=== PATIENT | male | born 1960 | race Caucasian/White ===

== ENCOUNTER 2018-05-22 11:09 | Emergency (ER) | payer OTHER, MEDICAID, SELFPAY ==
[2018-05-22] VITALS (8 sets, daily range): BP systolic 120–160; BP diastolic 68–89; PULSE 81–122; RESP 13–22; O2SAT 98–100; BMI 23.0
[2018-05-22] MEDS: SODIUM CHLORIDE 0.9% 1,000 ML 150 ML IV ×4 (12:38→18:49)
[2018-05-22] MEDS: ONDANSETRON 4 MG/2 ML INJ IV ×3 (12:39→18:36)
[2018-05-22] MEDS: MORPHINE 4 MG/ML INJ IV ×3 (12:39→19:11)
--- NOTE | 2018-05-22 12:40 | ED.ABDPAIN ---
HPI - Abdominal Pain <RUDDY De La Torre-BC - Last Filed: 05/22/18 19:00> General Chief Complaint: Abdominal Pain Stated Complaint: MASSIVE STOMACH PAINS LEFT SIDE Time Seen by Provider: 05/22/18 12:20 Source: patient and family Mode of arrival: ambulatory Limitations: no limitations History of Present Illness HPI narrative: Patient is a 57-year-old male who presents with chief complaint of abdominal pain since . He states it got worse after Thanksgiving dinner but he thought it was attributed to his meal. He currently presents with 10/10 left upper quadrant abdominal pain described as shooting and ringing. He denies any fever, complains of nausea and vomiting. He states his last bowel movement was several days ago but has not been eating or drinking. He is concerned he is dehydrated. He denies any abdominal history or surgeries. He states he is passing a slight gas. He denies any dysuria urgency or frequency. Denies any chest pain or shortness of breath. Related Data Home Medications Medication Instructions Recorded Confirmed No Known Home Medications 05/22/18 05/22/18 Allergies Allergy/AdvReac Type Severity Reaction Status Date / Time No Known Drug Allergies Allergy Verified 05/22/18 11:18 Review of Systems <RUDDY De La Torre-BC - Last Filed: 05/22/18 19:00> Constitutional Reports as per HPI, Denies chills, Denies fever(s), Denies lethargy and Denies weakness ENT Ears, Nose, Mouth, and Throat: Denies throat swelling Cardiovascular Denies chest pain, Denies chest pain at rest, Denies chest pain with activity, Denies diaphoresis, Denies syncope, Denies rapid heart rate and Denies irregular heart rhythm Respiratory Denies chest congestion, Denies cough, Denies hemoptysis, Denies excessive phlegm production and Denies wheezing Gastrointestinal Gastrointestinal: Reports as per HPI Genitourinary Denies urinary frequency, Denies urinary hesitancy and Denies urinary incontinence Musculoskeletal Denies back pain, Denies muscle weakness, Denies numbness and Denies tingling Integumentary/Breasts Denies pruritus, Denies erythema, Denies rash and Denies wounds Neurologic Denies confusion, Denies syncope, Denies numbness, Denies tingling and Denies weakness Psychiatric Denies anxiety, Denies confusion, Denies depression, Denies homicidal ideation and Denies suicidal ideation Allergic/Immunologic Denies urticaria, Denies throat swelling and Denies wheezing Exam <JUAN De La Torre - Last Filed: 05/22/18 19:00> Initial Vital Signs Initial Vital Signs: Vital Signs Pulse Rate 122 H 05/22/18 11:18 Respiratory Rate 22 05/22/18 11:18 Blood Pressure 134/89 05/22/18 11:18 Pulse Oximetry 98 05/22/18 11:18 Const General: cooperative, well developed, No well groomed and in distress Nutritional Appearance: thin Orientation: alert, awake and oriented x3 HENMT Head: normal to inspection Nose: external nose normal Face and sinus: normal facial exam Eyes General: appearance normal, both eyes and all related structures Neck Neck: normal visual inspection Chest Chest: normal inspection of the chest Resp Effort & Inspection: normal respiratory effort, able to speak in complete sentences, no audible wheezes, no cough, no grunting, not labored and no nasal flaring Auscultation: clear to auscultation bilaterally, no crackles, lung sounds not diminished, no rales, no rhonchi and no wheezes Cardio Rate: tachycardic Rhythm: regular rhythm Heart Sounds: S1 normal and S2 normal GI Inspection: normal to inspection Palpation: firm, guarding and No pulsatile mass Auscultation: normal bowel sounds Back/Spine/Pelvis Back: No CVA tenderness Cervical Spine: cervical ROM normal and No pain with cervical ROM Thoracic/Lumbar Spine: thoracic and lumbar spine normal to inspection Skin General: no rashes or lesions noted Neuro General: alert, awake and oriented x3 <Sharla Avalos DO - Last Filed: 05/23/18 07:55> Initial Vital Signs Initial Vital Signs: Vital Signs Pulse Rate 122 H 05/22/18 11:18 Respiratory Rate 22 05/22/18 11:18 Blood Pressure 134/89 05/22/18 11:18 Pulse Oximetry 98 05/22/18 11:18 Course <JUAN De La Torre - Last Filed: 05/22/18 19:00> Decision to Admit Date: 05/22/18 Decision to Admit time: 13:20 Orders Ordered: Discontinued Medications Sodium Chloride (Normal Saline 0.9%) 1,000 mls @ 150 mls/hr IV CONT COMFORT Last Admin: 05/22/18 18:46 Dose: 150 mls/hr Infusion: 05/22/18 18:46 Dose: 150 mls/hr Admin: 05/22/18 18:36 Dose: 150 mls/hr Infusion: 05/22/18 18:36 Dose: 150 mls/hr Admin: 05/22/18 12:38 Dose: 150 mls/hr Sodium Chloride (Normal Saline 0.9%) 1,000 mls @ 1,000 mls/hr IV BOLUS ONE Stop: 05/22/18 13:26 Last Admin: 05/22/18 13:08 Dose: Not Given Sodium Chloride (Normal Saline 0.9%) 1,000 mls @ 1,000 mls/hr IV BOLUS ONE Stop: 05/22/18 15:20 Last Admin: 05/22/18 14:32 Dose: 1,000 mls/hr Sodium Chloride (Normal Saline 0.9%) 1,000 mls @ 150 mls/hr IV CONT COFMORT Last Infusion: 05/22/18 19:13 Dose: 150 mls/hr Admin: 05/22/18 18:49 Dose: 150 mls/hr Morphine Sulfate (Morphine) 4 mg IV NOW ONE Stop: 05/22/18 12:28 Last Admin: 05/22/18 12:39 Dose: 4 mg Morphine Sulfate (Morphine) 4 mg IV NOW ONE Stop: 05/22/18 14:22 Last Admin: 05/22/18 14:32 Dose: 4 mg Morphine Sulfate (Morphine) 4 mg IV NOW ONE Stop: 05/22/18 19:12 Last Admin: 05/22/18 19:11 Dose: 4 mg Ondansetron HCl (Zofran) 4 mg IV NOW ONE Stop: 05/22/18 12:28 Last Admin: 05/22/18 12:39 Dose: 4 mg Ondansetron HCl (Zofran) 4 mg IV NOW ONE Stop: 05/22/18 14:22 Last Admin: 05/22/18 14:32 Dose: 4 mg Ondansetron HCl (Zofran) 4 mg IV NOW ONE Stop: 05/22/18 18:35 Last Admin: 05/22/18 18:36 Dose: 4 mg Reevaluation(s) Reevaluation #1: Spoke with patient about elevated lipase as well as CT scan that was ordered. Patient does not want any more pain or nausea medication at this point time. Patient's expresses appreciation. Is reclined on stretcher. Time: 13:15 Reevaluation #2: Spoke with patient regarding CT scan results. Discussed giving additional fluid. Patient is requesting more pain and nausea medications which I have ordered at this time. States understanding and has no questions. He is still hemodynamically stable. Time: 14:20 Consultations Consultation #1: Spoke with [facility] hospitalist Dr. Mejias who stated he would not like to admit this patient to this facility due to lack of GI back up. Time: 14:35 Consultation #2: Spoke with radiologist who states that cyst is less likely than not to be infectious Time: 16:00 Consultation #3: Spoke with [facility] Hospitalist Romy who states minal [facility] would not like to admit this patient given his slightly elevated white blood cell count combined with a pseudocyst. t Time: 16:20 Additional Consultation(s): 17:00: I spoke with Dr. Carrillo from [facility] who kindly agreed to admit the patient. Discussed transfer with patient has no questions or concerns this time. Patient has a continuous NS infusion running. Discussed treating his pain and nausea while he waits for ACLS transport to [facility] for fluids, pain and nausea control. Discussed that the reason of his transfer was the lack of comfort by our hospitalist as well as having GI at [facility]. I checked on the patient. He had no questions or concerns prior to his transfer at 5:00 p.m.. Vital Signs - 8 hr 05/22/18 11:18 05/22/18 12:31 05/22/18 13:30 Pulse Rate 122 H 110 H 87 Respiratory Rate 22 20 14 Blood Pressure 134/89 Blood Pressure [Left Arm] 160/88 H 148/86 H Pulse Oximetry 98 100 98 05/22/18 14:30 05/22/18 16:00 05/22/18 17:30 Pulse Rate 87 85 81 Respiratory Rate 13 Blood Pressure Blood Pressure [Left Arm] 147/84 H 120/68 136/78 Pulse Oximetry 100 99 99 05/22/18 18:45 Pulse Rate 87 Respiratory Rate 16 Blood Pressure Blood Pressure [Left Arm] 137/69 Pulse Oximetry 99 <Sharla Avalos, DO - Last Filed: 05/23/18 07:55> Orders Ordered: Discontinued Medications Sodium Chloride (Normal Saline 0.9%) 1,000 mls @ 150 mls/hr IV CONT [facility] Last Admin: 05/22/18 18:46 Dose: 150 mls/hr Infusion: 05/22/18 18:46 Dose: 150 mls/hr Admin: 05/22/18 18:36 Dose: 150 mls/hr Infusion: 05/22/18 18:36 Dose: 150 mls/hr Admin: 05/22/18 12:38 Dose: 150 mls/hr Sodium Chloride (Normal Saline 0.9%) 1,000 mls @ 1,000 mls/hr IV BOLUS ONE Stop: 05/22/18 13:26 Last Admin: 05/22/18 13:08 Dose: Not Given Sodium Chloride (Normal Saline 0.9%) 1,000 mls @ 1,000 mls/hr IV BOLUS ONE Stop: 05/22/18 15:20 Last Admin: 05/22/18 14:32 Dose: 1,000 mls/hr Sodium Chloride (Normal Saline 0.9%) 1,000 mls @ 150 mls/hr IV CONT [facility] Last Infusion: 05/22/18 19:13 Dose: 150 mls/hr Admin: 05/22/18 18:49 Dose: 150 mls/hr Morphine Sulfate (Morphine) 4 mg IV NOW ONE Stop: 05/22/18 12:28 Last Admin: 05/22/18 12:39 Dose: 4 mg Morphine Sulfate (Morphine) 4 mg IV NOW ONE Stop: 05/22/18 14:22 Last Admin: 05/22/18 14:32 Dose: 4 mg Morphine Sulfate (Morphine) 4 mg IV NOW ONE Stop: 05/22/18 19:12 Last Admin: 05/22/18 19:11 Dose: 4 mg Ondansetron HCl (Zofran) 4 mg IV NOW ONE Stop: 05/22/18 12:28 Last Admin: 05/22/18 12:39 Dose: 4 mg Ondansetron HCl (Zofran) 4 mg IV NOW ONE Stop: 05/22/18 14:22 Last Admin: 05/22/18 14:32 Dose: 4 mg Ondansetron HCl (Zofran) 4 mg IV NOW ONE Stop: 05/22/18 18:35 Last Admin: 05/22/18 18:36 Dose: 4 mg Vital Signs - 8 hr 05/22/18 11:18 05/22/18 12:31 05/22/18 13:30 Pulse Rate 122 H 110 H 87 Respiratory Rate 22 20 14 Blood Pressure 134/89 Blood Pressure [Left Arm] 160/88 H 148/86 H Pulse Oximetry 98 100 98 05/22/18 14:30 05/22/18 16:00 05/22/18 17:30 Pulse Rate 87 85 81 Respiratory Rate 13 Blood Pressure Blood Pressure [Left Arm] 147/84 H 120/68 136/78 Pulse Oximetry 100 99 99 05/22/18 18:45 Pulse Rate 87 Respiratory Rate 16 Blood Pressure Blood Pressure [Left Arm] 137/69 Pulse Oximetry 99 MDM - Abdominal Pain <RUDDY De La Torre- - Last Filed: 05/22/18 19:00> Lab Data Attestation: I reviewed the patient's lab results. Result diagrams: 05/22/18 12:25 05/22/18 12:25 Lab Results 05/22/18 05/22/18 05/22/18 Range/Units 12:25 12:25 12:25 WBC 14.4 H (4.5-11.0) X10^3/uL RBC 4.87 (4.5-5.9) X10^6/uL Hgb 14.9 (13.5-17.5) g/dL Hct 44.1 (41-53) % MCV 90.6 (80-100) fL MCH 30.7 (26-34) PG MCHC 33.9 (30-36) % RDW 11.9 (11.6-14.8) % Plt Count 315 (150-400) X10^3/uL Neut % (Auto) 82.3 H (50-75) % Lymph % (Auto) 4.4 L (25-40) % [place] % (Auto) 12.6 (3-14) % Eos % (Auto) 0.2 L (2-4) % Baso % (Auto) 0.5 (0-2) % Neut # (Auto) 68245 H (0136-0504) /uL Sodium 135 L (137-145) mmol/L Potassium 3.9 (3.4-5.1) mmol/L Chloride 98 (98-107) mmol/L Carbon Dioxide 23 (22-32) mmol/L BUN 15 (9-20) mg/dL Creatinine 0.60 L (0.66-1.25) mg/dL Estimated GFR > 60.0 (>60) mL/min BUN/Creatinine Ratio 25.0 H (6-22) Glucose 139 H (70-100) mg/dL Lactate 1.5 (0.7-2.1) mmol/L Calcium 9.5 (8.4-10.2) mg/dL Total Bilirubin 0.7 (0.2-1.3) mg/dL AST 22 (17-59) IU/L ALT 21 (21-72) IU/L Alkaline Phosphatase 83 (38-126) U/L Total Creatine Kinase 34 L (55-170) U/L CK-MB (CK-2) TNP CK-MB (CK-2) Rel Index TNP Troponin I < 0.012 (0.01-0.034) ng/mL Total Protein 8.3 H (6.3-8.2) g/dL Albumin 4.6 (3.5-5.0) g/dL Globulin 3.7 (1.7-4.1) g/dL Albumin/Globulin Ratio 1.2 (1.0-2.8) Amylase 190 H (30-110) U/L Lipase 1518 H (23-300) U/L Influenza A & B (PCR) (Negative) 05/22/18 Range/Units 12:50 WBC (4.5-11.0) X10^3/uL RBC (4.5-5.9) X10^6/uL Hgb (13.5-17.5) g/dL Hct (41-53) % MCV (80-100) fL MCH (26-34) PG MCHC (30-36) % RDW (11.6-14.8) % Plt Count (150-400) X10^3/uL Neut % (Auto) (50-75) % Lymph % (Auto) (25-40) % [place] % (Auto) (3-14) % Eos % (Auto) (2-4) % Baso % (Auto) (0-2) % Neut # (Auto) (9295-6074) /uL Sodium (137-145) mmol/L Potassium (3.4-5.1) mmol/L Chloride (98-107) mmol/L Carbon Dioxide (22-32) mmol/L BUN (9-20) mg/dL Creatinine (0.66-1.25) mg/dL Estimated GFR (>60) mL/min BUN/Creatinine Ratio (6-22) Glucose (70-100) mg/dL Lactate (0.7-2.1) mmol/L Calcium (8.4-10.2) mg/dL Total Bilirubin (0.2-1.3) mg/dL AST (17-59) IU/L ALT (21-72) IU/L Alkaline Phosphatase (38-126) U/L Total Creatine Kinase (55-170) U/L CK-MB (CK-2) CK-MB (CK-2) Rel Index Troponin I (0.01-0.034) ng/mL Total Protein (6.3-8.2) g/dL Albumin (3.5-5.0) g/dL Globulin (1.7-4.1) g/dL Albumin/Globulin Ratio (1.0-2.8) Amylase (30-110) U/L Lipase (23-300) U/L Influenza A & B (PCR) Negative (Negative) Point of care testing: Urine Dip Bedside Urine Glucose Negative Bedside Urine Bilirubin - Negative Bedside Urine Ketone +++ 80 Urine Specific [place] 1.010 Bedside Urine Occult Blood - Negative Bedside Urine pH 5.5 Bedside Urine Protein +/- 15 Bedside Urine Urobilinogen +/- 1mg Bedside Urine Nitrite - Negative Bedside Urine Leukocytes - Negative Esterase Imaging Data CT scan - abdomen: Radiologist's impression: [address] [address] [address] Scan Report Addendum Patient: Zion Winter QMR#: [id number] : 1960Acct:[id number] Age/Sex: 57 / MDate of Service: 05/22/18 Loc: ED Accession Number: [id number] Procedure: CT abdomen pelvis w con Ordering Provider: Penelope Dickinson ADDENDUM This report includes an Addendum and supersedes previous reports for this exam. PROCEDURE: CT ABDOMEN PELVIS W CON INDICATIONS: LEFT UPPER ABD pain, elevated lipase TECHNIQUE: After the administration of intravenous contrast, 5 mm thick sections acquired from the diaphragm to the symphysis. 5 mm coronal and sagittal reformats were acquired. For radiation dose reduction, the following was used: automated exposure control, adjustment of mA and/or kV according to patient size. COMPARISON: None. FINDINGS: Image quality: Excellent. ABDOMEN: Lung bases: Lung likely scarring can be seen within the dependent right lower lobe. Heart size is normal. Solid organs: Liver is normal in size and enhancement. Incidental note is made of focal fatty infiltration adjacent to the falciform ligament, which is not regarded to be pathologic. Gallbladder demonstrates no significant CT abnormality. Biliary system is non dilated. There is focal inflammatory change seen surrounding the pancreas, particularly along the tail of the pancreas. Pancreatic duct measures at the upper limits of normal at 3 mm. There is a cystic lesion seen adjacent to the tail of the pancreas that measures up to 4.9 cm. Medial to this primary fluid collection, there is an additional smaller collection seen, as on series 2 image 23 measuring 3.2 cm. Associated free fluid is seen, including free fluid layering within the pelvis. Spleen is normal in size and enhancement. No adrenal nodules. Kidneys demonstrate normal size and enhancement, without hydronephrosis. At the inferior pole of the right kidney, there is a simple appearing cyst seen that measures 13 Hounsfield units and 1.8 cm. Peritoneum and bowel: There is thickening of the wall of the proximal stomach. Bowel loops demonstrate normal wall thickness and caliber. No free air. Diverticulosis is seen, without findings of active diverticulitis. Nodes and vessels: No retroperitoneal or mesenteric adenopathy by size criteria. Aorta and inferior vena cava are normal in size. Miscellaneous: No ventral hernias. PELVIS: Genitourinary: Bladder wall thickness is normal. An apparent urinary bladder diverticulum can be seen on the right side, as on series 2 image 77. Miscellaneous: No inguinal hernias or adenopathy. Bones: No suspicious bony lesions. No vertebral body compression fractures. Degenerative changes are seen throughout, which are most prominent at the L5-S1 level. IMPRESSION: These imaging findings are most compatible with pancreatitis with associated pseudocysts and inflammatory change of the adjacent stomach. However, differential diagnosis includes a gastric process with related fluid collections and secondary related elevated lipase. Associated free fluid is seen, including free fluid layering within the pelvis. Followup imaging is recommended. When clinically appropriate, an upper endoscopy is also suggested. Incidental note is made of: Bladder diverticulum Simple appearing right renal cyst Diverticulosis is seen, without findings of active diverticulitis. Focal L5-S1 degenerative change Dictated by: Daren Sahu M.D. on 05/22/2018 at 12:49 Approved by: Daren Sahu M.D. on 05/22/2018 at 12:58 ADDENDUM: This case was reviewed at the request of Penelope Dickinson and discussed with her by telephone at 3:59 PM [place] time on May 22, 2018. Concordant findings discussed. Given the lack of rim enhancement, the above process is more likely inflammatory and less likely infectious. However, infection remains within the differential. Please consider workup for the possibility of a primary gastric process, when clinically appropriate. Dictated by: Daren Sahu M.D. on 05/22/2018 at 14:57 Approved by: Daren Sahu M.D. on 05/22/2018 at 15:00 Addendum Dictated By:Daren Sahu MD Addendum Signed By: Addendum Cosigned By: DD/ TD/TT: 05/22/18 PROCEDURE: CT ABDOMEN PELVIS W CON INDICATIONS: LEFT UPPER ABD pain, elevated lipase TECHNIQUE: After the administration of intravenous contrast, 5 mm thick sections acquired from the diaphragm to the symphysis. 5 mm coronal and sagittal reformats were acquired. For radiation dose reduction, the following was used: automated exposure control, adjustment of mA and/or kV according to patient size. COMPARISON: None. FINDINGS: Image quality: Excellent. ABDOMEN: Lung bases: Lung likely scarring can be seen within the dependent right lower lobe. Heart size is normal. Solid organs: Liver is normal in size and enhancement. Incidental note is made of focal fatty infiltration adjacent to the falciform ligament, which is not regarded to be pathologic. Gallbladder demonstrates no significant CT abnormality. Biliary system is non dilated. There is focal inflammatory change seen surrounding the pancreas, particularly along the tail of the pancreas. Pancreatic duct measures at the upper limits of normal at 3 mm. There is a cystic lesion seen adjacent to the tail of the pancreas that measures up to 4.9 cm. Medial to this primary fluid collection, there is an additional smaller collection seen, as on series 2 image 23 measuring 3.2 cm. Associated free fluid is seen, including free fluid layering within the pelvis. Spleen is normal in size and enhancement. No adrenal nodules. Kidneys demonstrate normal size and enhancement, without hydronephrosis. At the inferior pole of the right kidney, there is a simple appearing cyst seen that measures 13 Hounsfield units and 1.8 cm. Peritoneum and bowel: There is thickening of the wall of the proximal stomach. Bowel loops demonstrate normal wall thickness and caliber. No free air. Diverticulosis is seen, without findings of active diverticulitis. Nodes and vessels: No retroperitoneal or mesenteric adenopathy by size criteria. Aorta and inferior vena cava are normal in size. Miscellaneous: No ventral hernias. PELVIS: Genitourinary: Bladder wall thickness is normal. An apparent urinary bladder diverticulum can be seen on the right side, as on series 2 image 77. Miscellaneous: No inguinal hernias or adenopathy. Bones: No suspicious bony lesions. No vertebral body compression fractures. Degenerative changes are seen throughout, which are most prominent at the L5-S1 level. IMPRESSION: These imaging findings are most compatible with pancreatitis with associated pseudocysts and inflammatory change of the adjacent stomach. However, differential diagnosis includes a gastric process with related fluid collections and secondary related elevated lipase. Associated free fluid is seen, including free fluid layering within the pelvis. Followup imaging is recommended. When clinically appropriate, an upper endoscopy is also suggested. Incidental note is made of: Bladder diverticulum Simple appearing right renal cyst Diverticulosis is seen, without findings of active diverticulitis. Focal L5-S1 degenerative change Dictated by: Daren Sahu M.D. on 05/22/2018 at 12:49 Approved by: Daren Sahu M.D. on 05/22/2018 at 12:58 US - abdomen: Radiologist's impression: [address] [address] Ultrasound Report Signed Patient: Zion Winter QMR#: [id number] : 1960Acct:[id number] Age/Sex: 57 / MDate of Service: 05/22/18 Loc: ED Accession Number: [id number] Procedure: US abdomen limited Ordering Provider: Penelope Dickinson-BC PROCEDURE: US ABDOMEN LIMITED INDICATIONS: PAIN; FOLLOW-UP CT OF TODAY TECHNIQUE: Real-time focused scanning was performed of the abdomen, with image documentation. COMPARISON: [facility], CT, CT ABDOMEN PELVIS W MYRA, 05/22/2018, 13:18. FINDINGS: The gallbladder is within normal limits. No gallbladder wall thickening, pericholecystic fluid, or cholelithiasis is identified. There is no intrahepatic or extrahepatic biliary dilatation. The common bile duct measures up to approximately 5 mm in diameter. The pancreas is noted to be hypoechoic. No fluid collections along the tail of the pancreas are not well characterized. One measures at least 19 mm in diameter. The main pancreatic duct measures up to 3 mm in diameter. IMPRESSION: 1. No cholelithiasis. 2. Hypoechogenicity of the pancreas is suggestive of pancreatitis. 3. 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 Dictated by: Vincent Johnson M.D. on 05/22/2018 at 15:44 Approved by: Vincent Johnson M.D. on 05/22/2018 at 15:46 ECG Data Attestation: I personally reviewed and interpreted this ECG as follows: Interpretation: Sinus rhythm. Ventricular rate 95. No ectopy noted. No ST elevation or depression. MI interval 120 QRS 103 MDM Narrative Medical decision making narrative: Patient is a 57-year-old male who presents with left upper GI pain. He was in obvious pain upon admission, but hemodynamically stable throughout his stay in the emergency department. Basic labs and imaging were done. The patient was found have an elevated lipase at over 1500 as well as concern for pancreatitis on his CT and ultrasound. He was noted to have pseudocyst and gastrc inflammation noted on CT as well. Given that the hospitalist at this location was not comfortable admitting this patient, he was transferred down to [facility]. He was started on IV fluids, given 2 L bolus in the emergency department as well as medications for pain and nausea control. He had no questions or concerns upon transfer. He remained hemodynamically stable throughout his stay in the emergency department and stated his pain and what nausea or much improved with medications. <Sharla Avalos, DO - Last Filed: 05/23/18 07:55> Lab Data Lab Results 05/22/18 05/22/18 05/22/18 Range/Units 12:25 12:25 12:25 WBC 14.4 H (4.5-11.0) X10^3/uL RBC 4.87 (4.5-5.9) X10^6/uL Hgb 14.9 (13.5-17.5) g/dL Hct 44.1 (41-53) % MCV 90.6 (80-100) fL MCH 30.7 (26-34) PG MCHC 33.9 (30-36) % RDW 11.9 (11.6-14.8) % Plt Count 315 (150-400) X10^3/uL Neut % (Auto) 82.3 H (50-75) % Lymph % (Auto) 4.4 L (25-40) % [place] % (Auto) 12.6 (3-14) % Eos % (Auto) 0.2 L (2-4) % Baso % (Auto) 0.5 (0-2) % Neut # (Auto) 34988 H (4380-9369) /uL Sodium 135 L (137-145) mmol/L Potassium 3.9 (3.4-5.1) mmol/L Chloride 98 (98-107) mmol/L Carbon Dioxide 23 (22-32) mmol/L BUN 15 (9-20) mg/dL Creatinine 0.60 L (0.66-1.25) mg/dL Estimated GFR > 60.0 (>60) mL/min BUN/Creatinine Ratio 25.0 H (6-22) Glucose 139 H (70-100) mg/dL Lactate 1.5 (0.7-2.1) mmol/L Calcium 9.5 (8.4-10.2) mg/dL Total Bilirubin 0.7 (0.2-1.3) mg/dL AST 22 (17-59) IU/L ALT 21 (21-72) IU/L Alkaline Phosphatase 83 (38-126) U/L Total Creatine Kinase 34 L (55-170) U/L CK-MB (CK-2) TNP CK-MB (CK-2) Rel Index TNP Troponin I < 0.012 (0.01-0.034) ng/mL Total Protein 8.3 H (6.3-8.2) g/dL Albumin 4.6 (3.5-5.0) g/dL Globulin 3.7 (1.7-4.1) g/dL Albumin/Globulin Ratio 1.2 (1.0-2.8) Amylase 190 H (30-110) U/L Lipase 1518 H (23-300) U/L Influenza A & B (PCR) (Negative) 05/22/18 Range/Units 12:50 WBC (4.5-11.0) X10^3/uL RBC (4.5-5.9) X10^6/uL Hgb (13.5-17.5) g/dL Hct (41-53) % MCV (80-100) fL MCH (26-34) PG MCHC (30-36) % RDW (11.6-14.8) % Plt Count (150-400) X10^3/uL Neut % (Auto) (50-75) % Lymph % (Auto) (25-40) % [place] % (Auto) (3-14) % Eos % (Auto) (2-4) % Baso % (Auto) (0-2) % Neut # (Auto) (8598-8408) /uL Sodium (137-145) mmol/L Potassium (3.4-5.1) mmol/L Chloride (98-107) mmol/L Carbon Dioxide (22-32) mmol/L BUN (9-20) mg/dL Creatinine (0.66-1.25) mg/dL Estimated GFR (>60) mL/min BUN/Creatinine Ratio (6-22) Glucose (70-100) mg/dL Lactate (0.7-2.1) mmol/L Calcium (8.4-10.2) mg/dL Total Bilirubin (0.2-1.3) mg/dL AST (17-59) IU/L ALT (21-72) IU/L Alkaline Phosphatase (38-126) U/L Total Creatine Kinase (55-170) U/L CK-MB (CK-2) CK-MB (CK-2) Rel Index Troponin I (0.01-0.034) ng/mL Total Protein (6.3-8.2) g/dL Albumin (3.5-5.0) g/dL Globulin (1.7-4.1) g/dL Albumin/Globulin Ratio (1.0-2.8) Amylase (30-110) U/L Lipase (23-300) U/L Influenza A & B (PCR) Negative (Negative) Point of care testing: Urine Dip Bedside Urine Glucose Negative Bedside Urine Bilirubin - Negative Bedside Urine Ketone +++ 80 Urine Specific [place] 1.010 Bedside Urine Occult Blood - Negative Bedside Urine pH 5.5 Bedside Urine Protein +/- 15 Bedside Urine Urobilinogen +/- 1mg Bedside Urine Nitrite - Negative Bedside Urine Leukocytes - Negative Esterase Discharge Plan Departure Patient Disposition: [facility] Clinical Impression: Acute pancreatitis, Abdominal pain, Pancreatic pseudocyst Discharge Date/Time: 05/22/18 19:27 Interventions: ED Discharge Assessment Last Done: 05/22/18 19:15 Prescriptions: No Action No Known Home Medications RF: 0 <Sharla Avalos DO - Last Filed: 05/23/18 07:55> Cosign ED Attending Cosignature Attestation: I was immediately available in the department for consultation. Documentation has been reviewed. I agree with assessment and plan.
--- NOTE | 2018-05-22 12:45 | ED_ITS ---
HPI - Abdominal Pain <RUDDY De La Torre-BC - Last Filed: 05/22/18 19:00> General Chief Complaint: Abdominal Pain Stated Complaint: MASSIVE STOMACH PAINS LEFT SIDE Time Seen by Provider: 05/22/18 12:20 Source: patient and family Mode of arrival: ambulatory Limitations: no limitations History of Present Illness HPI narrative: Patient is a 57-year-old male who presents with chief complaint of abdominal pain since . He states it got worse after Thanksgiving dinner but he thought it was attributed to his meal. He currently presents with 10/10 left upper quadrant abdominal pain described as shooting and ringing. He denies any fever, complains of nausea and vomiting. He states his last bowel movement was several days ago but has not been eating or drinking. He is concerned he is dehydrated. He denies any abdominal history or surgeries. He states he is passing a slight gas. He denies any dysuria urgency or frequency. Denies any chest pain or shortness of breath. Related Data Home Medications Medication Instructions Recorded Confirmed No Known Home Medications 05/22/18 05/22/18 Allergies Allergy/AdvReac Type Severity Reaction Status Date / Time No Known Drug Allergies Allergy Verified 05/22/18 11:18 Review of Systems <RUDDY De La Torre-BC - Last Filed: 05/22/18 19:00> Constitutional Reports as per HPI, Denies chills, Denies fever(s), Denies lethargy and Denies weakness ENT Ears, Nose, Mouth, and Throat: Denies throat swelling Cardiovascular Denies chest pain, Denies chest pain at rest, Denies chest pain with activity, Denies diaphoresis, Denies syncope, Denies rapid heart rate and Denies irregular heart rhythm Respiratory Denies chest congestion, Denies cough, Denies hemoptysis, Denies excessive phlegm production and Denies wheezing Gastrointestinal Gastrointestinal: Reports as per HPI Genitourinary Denies urinary frequency, Denies urinary hesitancy and Denies urinary incontinence Musculoskeletal Denies back pain, Denies muscle weakness, Denies numbness and Denies tingling Integumentary/Breasts Denies pruritus, Denies erythema, Denies rash and Denies wounds Neurologic Denies confusion, Denies syncope, Denies numbness, Denies tingling and Denies weakness Psychiatric Denies anxiety, Denies confusion, Denies depression, Denies homicidal ideation and Denies suicidal ideation Allergic/Immunologic Denies urticaria, Denies throat swelling and Denies wheezing Exam <JUAN De La Torre - Last Filed: 05/22/18 19:00> Initial Vital Signs Initial Vital Signs: Vital Signs Pulse Rate 122 H 05/22/18 11:18 Respiratory Rate 22 05/22/18 11:18 Blood Pressure 134/89 05/22/18 11:18 Pulse Oximetry 98 05/22/18 11:18 Const General: cooperative, well developed, No well groomed and in distress Nutritional Appearance: thin Orientation: alert, awake and oriented x3 HENMT Head: normal to inspection Nose: external nose normal Face and sinus: normal facial exam Eyes General: appearance normal, both eyes and all related structures Neck Neck: normal visual inspection Chest Chest: normal inspection of the chest Resp Effort & Inspection: normal respiratory effort, able to speak in complete sentences, no audible wheezes, no cough, no grunting, not labored and no nasal flaring Auscultation: clear to auscultation bilaterally, no crackles, lung sounds not diminished, no rales, no rhonchi and no wheezes Cardio Rate: tachycardic Rhythm: regular rhythm Heart Sounds: S1 normal and S2 normal GI Inspection: normal to inspection Palpation: firm, guarding and No pulsatile mass Auscultation: normal bowel sounds Back/Spine/Pelvis Back: No CVA tenderness Cervical Spine: cervical ROM normal and No pain with cervical ROM Thoracic/Lumbar Spine: thoracic and lumbar spine normal to inspection Skin General: no rashes or lesions noted Neuro General: alert, awake and oriented x3 <Sharla Avalos DO - Last Filed: 05/23/18 07:55> Initial Vital Signs Initial Vital Signs: Vital Signs Pulse Rate 122 H 05/22/18 11:18 Respiratory Rate 22 05/22/18 11:18 Blood Pressure 134/89 05/22/18 11:18 Pulse Oximetry 98 05/22/18 11:18 Course <JUAN De La Torre - Last Filed: 05/22/18 19:00> Decision to Admit Date: 05/22/18 Decision to Admit time: 13:20 Orders Ordered: Discontinued Medications Sodium Chloride (Normal Saline 0.9%) 1,000 mls @ 150 mls/hr IV CONT COMFORT Last Admin: 05/22/18 18:46 Dose: 150 mls/hr Infusion: 05/22/18 18:46 Dose: 150 mls/hr Admin: 05/22/18 18:36 Dose: 150 mls/hr Infusion: 05/22/18 18:36 Dose: 150 mls/hr Admin: 05/22/18 12:38 Dose: 150 mls/hr Sodium Chloride (Normal Saline 0.9%) 1,000 mls @ 1,000 mls/hr IV BOLUS ONE Stop: 05/22/18 13:26 Last Admin: 05/22/18 13:08 Dose: Not Given Sodium Chloride (Normal Saline 0.9%) 1,000 mls @ 1,000 mls/hr IV BOLUS ONE Stop: 05/22/18 15:20 Last Admin: 05/22/18 14:32 Dose: 1,000 mls/hr Sodium Chloride (Normal Saline 0.9%) 1,000 mls @ 150 mls/hr IV CONT COMFORT Last Infusion: 05/22/18 19:13 Dose: 150 mls/hr Admin: 05/22/18 18:49 Dose: 150 mls/hr Morphine Sulfate (Morphine) 4 mg IV NOW ONE Stop: 05/22/18 12:28 Last Admin: 05/22/18 12:39 Dose: 4 mg Morphine Sulfate (Morphine) 4 mg IV NOW ONE Stop: 05/22/18 14:22 Last Admin: 05/22/18 14:32 Dose: 4 mg Morphine Sulfate (Morphine) 4 mg IV NOW ONE Stop: 05/22/18 19:12 Last Admin: 05/22/18 19:11 Dose: 4 mg Ondansetron HCl (Zofran) 4 mg IV NOW ONE Stop: 05/22/18 12:28 Last Admin: 05/22/18 12:39 Dose: 4 mg Ondansetron HCl (Zofran) 4 mg IV NOW ONE Stop: 05/22/18 14:22 Last Admin: 05/22/18 14:32 Dose: 4 mg Ondansetron HCl (Zofran) 4 mg IV NOW ONE Stop: 05/22/18 18:35 Last Admin: 05/22/18 18:36 Dose: 4 mg Reevaluation(s) Reevaluation #1: Spoke with patient about elevated lipase as well as CT scan that was ordered. Patient does not want any more pain or nausea medication at this point time. Patient's expresses appreciation. Is reclined on stretcher. Time: 13:15 Reevaluation #2: Spoke with patient regarding CT scan results. Discussed giving additional fluid. Patient is requesting more pain and nausea medications which I have ordered at this time. States understanding and has no questions. He is still hemodynamically stable. Time: 14:20 Consultations Consultation #1: Spoke with [facility] hospitalist Dr. Mejias who stated he would not like to admit this patient to this facility due to lack of GI back up. Time: 14:35 Consultation #2: Spoke with radiologist who states that cyst is less likely than not to be infectious Time: 16:00 Consultation #3: Spoke with [facility] Hospitalist Romy who states minal [facility] would not like to admit this patient given his slightly elevated white blood cell count combined with a pseudocyst. t Time: 16:20 Additional Consultation(s): 17:00: I spoke with Dr. Carrillo from [facility] who kindly agreed to admit the patient. Discussed transfer with patient has no questions or concerns this time. Patient has a continuous NS infusion running. Discussed treating his pain and nausea while he waits for ACLS transport to [facility] for fluids, pain and nausea control. Discussed that the reason of his transfer was the lack of comfort by our hospitalist as well as having GI at [facility]. I checked on the patient. He had no questions or concerns prior to his transfer at 5:00 p.m.. Vital Signs - 8 hr 05/22/18 11:18 05/22/18 12:31 05/22/18 13:30 Pulse Rate 122 H 110 H 87 Respiratory Rate 22 20 14 Blood Pressure 134/89 Blood Pressure [Left Arm] 160/88 H 148/86 H Pulse Oximetry 98 100 98 05/22/18 14:30 05/22/18 16:00 05/22/18 17:30 Pulse Rate 87 85 81 Respiratory Rate 13 Blood Pressure Blood Pressure [Left Arm] 147/84 H 120/68 136/78 Pulse Oximetry 100 99 99 05/22/18 18:45 Pulse Rate 87 Respiratory Rate 16 Blood Pressure Blood Pressure [Left Arm] 137/69 Pulse Oximetry 99 <Sharla Avalos, DO - Last Filed: 05/23/18 07:55> Orders Ordered: Discontinued Medications Sodium Chloride (Normal Saline 0.9%) 1,000 mls @ 150 mls/hr IV CONT [facility] Last Admin: 05/22/18 18:46 Dose: 150 mls/hr Infusion: 05/22/18 18:46 Dose: 150 mls/hr Admin: 05/22/18 18:36 Dose: 150 mls/hr Infusion: 05/22/18 18:36 Dose: 150 mls/hr Admin: 05/22/18 12:38 Dose: 150 mls/hr Sodium Chloride (Normal Saline 0.9%) 1,000 mls @ 1,000 mls/hr IV BOLUS ONE Stop: 05/22/18 13:26 Last Admin: 05/22/18 13:08 Dose: Not Given Sodium Chloride (Normal Saline 0.9%) 1,000 mls @ 1,000 mls/hr IV BOLUS ONE Stop: 05/22/18 15:20 Last Admin: 05/22/18 14:32 Dose: 1,000 mls/hr Sodium Chloride (Normal Saline 0.9%) 1,000 mls @ 150 mls/hr IV CONT [facility] Last Infusion: 05/22/18 19:13 Dose: 150 mls/hr Admin: 05/22/18 18:49 Dose: 150 mls/hr Morphine Sulfate (Morphine) 4 mg IV NOW ONE Stop: 05/22/18 12:28 Last Admin: 05/22/18 12:39 Dose: 4 mg Morphine Sulfate (Morphine) 4 mg IV NOW ONE Stop: 05/22/18 14:22 Last Admin: 05/22/18 14:32 Dose: 4 mg Morphine Sulfate (Morphine) 4 mg IV NOW ONE Stop: 05/22/18 19:12 Last Admin: 05/22/18 19:11 Dose: 4 mg Ondansetron HCl (Zofran) 4 mg IV NOW ONE Stop: 05/22/18 12:28 Last Admin: 05/22/18 12:39 Dose: 4 mg Ondansetron HCl (Zofran) 4 mg IV NOW ONE Stop: 05/22/18 14:22 Last Admin: 05/22/18 14:32 Dose: 4 mg Ondansetron HCl (Zofran) 4 mg IV NOW ONE Stop: 05/22/18 18:35 Last Admin: 05/22/18 18:36 Dose: 4 mg Vital Signs - 8 hr 05/22/18 11:18 05/22/18 12:31 05/22/18 13:30 Pulse Rate 122 H 110 H 87 Respiratory Rate 22 20 14 Blood Pressure 134/89 Blood Pressure [Left Arm] 160/88 H 148/86 H Pulse Oximetry 98 100 98 05/22/18 14:30 05/22/18 16:00 05/22/18 17:30 Pulse Rate 87 85 81 Respiratory Rate 13 Blood Pressure Blood Pressure [Left Arm] 147/84 H 120/68 136/78 Pulse Oximetry 100 99 99 05/22/18 18:45 Pulse Rate 87 Respiratory Rate 16 Blood Pressure Blood Pressure [Left Arm] 137/69 Pulse Oximetry 99 MDM - Abdominal Pain <RUDDY De La Torre- - Last Filed: 05/22/18 19:00> Lab Data Attestation: I reviewed the patient's lab results. Result diagrams: 05/22/18 12:25 05/22/18 12:25 Lab Results 05/22/18 05/22/18 05/22/18 Range/Units 12:25 12:25 12:25 WBC 14.4 H (4.5-11.0) X10^3/uL RBC 4.87 (4.5-5.9) X10^6/uL Hgb 14.9 (13.5-17.5) g/dL Hct 44.1 (41-53) % MCV 90.6 (80-100) fL MCH 30.7 (26-34) PG MCHC 33.9 (30-36) % RDW 11.9 (11.6-14.8) % Plt Count 315 (150-400) X10^3/uL Neut % (Auto) 82.3 H (50-75) % Lymph % (Auto) 4.4 L (25-40) % [place] % (Auto) 12.6 (3-14) % Eos % (Auto) 0.2 L (2-4) % Baso % (Auto) 0.5 (0-2) % Neut # (Auto) 49185 H (9982-8849) /uL Sodium 135 L (137-145) mmol/L Potassium 3.9 (3.4-5.1) mmol/L Chloride 98 (98-107) mmol/L Carbon Dioxide 23 (22-32) mmol/L BUN 15 (9-20) mg/dL Creatinine 0.60 L (0.66-1.25) mg/dL Estimated GFR > 60.0 (>60) mL/min BUN/Creatinine Ratio 25.0 H (6-22) Glucose 139 H (70-100) mg/dL Lactate 1.5 (0.7-2.1) mmol/L Calcium 9.5 (8.4-10.2) mg/dL Total Bilirubin 0.7 (0.2-1.3) mg/dL AST 22 (17-59) IU/L ALT 21 (21-72) IU/L Alkaline Phosphatase 83 (38-126) U/L Total Creatine Kinase 34 L (55-170) U/L CK-MB (CK-2) TNP CK-MB (CK-2) Rel Index TNP Troponin I < 0.012 (0.01-0.034) ng/mL Total Protein 8.3 H (6.3-8.2) g/dL Albumin 4.6 (3.5-5.0) g/dL Globulin 3.7 (1.7-4.1) g/dL Albumin/Globulin Ratio 1.2 (1.0-2.8) Amylase 190 H (30-110) U/L Lipase 1518 H (23-300) U/L Influenza A & B (PCR) (Negative) 05/22/18 Range/Units 12:50 WBC (4.5-11.0) X10^3/uL RBC (4.5-5.9) X10^6/uL Hgb (13.5-17.5) g/dL Hct (41-53) % MCV (80-100) fL MCH (26-34) PG MCHC (30-36) % RDW (11.6-14.8) % Plt Count (150-400) X10^3/uL Neut % (Auto) (50-75) % Lymph % (Auto) (25-40) % [place] % (Auto) (3-14) % Eos % (Auto) (2-4) % Baso % (Auto) (0-2) % Neut # (Auto) (6538-0202) /uL Sodium (137-145) mmol/L Potassium (3.4-5.1) mmol/L Chloride (98-107) mmol/L Carbon Dioxide (22-32) mmol/L BUN (9-20) mg/dL Creatinine (0.66-1.25) mg/dL Estimated GFR (>60) mL/min BUN/Creatinine Ratio (6-22) Glucose (70-100) mg/dL Lactate (0.7-2.1) mmol/L Calcium (8.4-10.2) mg/dL Total Bilirubin (0.2-1.3) mg/dL AST (17-59) IU/L ALT (21-72) IU/L Alkaline Phosphatase (38-126) U/L Total Creatine Kinase (55-170) U/L CK-MB (CK-2) CK-MB (CK-2) Rel Index Troponin I (0.01-0.034) ng/mL Total Protein (6.3-8.2) g/dL Albumin (3.5-5.0) g/dL Globulin (1.7-4.1) g/dL Albumin/Globulin Ratio (1.0-2.8) Amylase (30-110) U/L Lipase (23-300) U/L Influenza A & B (PCR) Negative (Negative) Point of care testing: Urine Dip Bedside Urine Glucose Negative Bedside Urine Bilirubin - Negative Bedside Urine Ketone +++ 80 Urine Specific [place] 1.010 Bedside Urine Occult Blood - Negative Bedside Urine pH 5.5 Bedside Urine Protein +/- 15 Bedside Urine Urobilinogen +/- 1mg Bedside Urine Nitrite - Negative Bedside Urine Leukocytes - Negative Esterase Imaging Data CT scan - abdomen: Radiologist's impression: [address] [address] [address] Scan Report Addendum Patient: Zion Winter QMR#: [id number] : 1960Acct:[id number] Age/Sex: 57 / MDate of Service: 05/22/18 Loc: ED Accession Number: [id number] Procedure: CT abdomen pelvis w con Ordering Provider: Penelope Dickinson ADDENDUM This report includes an Addendum and supersedes previous reports for this exam. PROCEDURE: CT ABDOMEN PELVIS W CON INDICATIONS: LEFT UPPER ABD pain, elevated lipase TECHNIQUE: After the administration of intravenous contrast, 5 mm thick sections acquired from the diaphragm to the symphysis. 5 mm coronal and sagittal reformats were acquired. For radiation dose reduction, the following was used: automated exposure control, adjustment of mA and/or kV according to patient size. COMPARISON: None. FINDINGS: Image quality: Excellent. ABDOMEN: Lung bases: Lung likely scarring can be seen within the dependent right lower lobe. Heart size is normal. Solid organs: Liver is normal in size and enhancement. Incidental note is made of focal fatty infiltration adjacent to the falciform ligament, which is not regarded to be pathologic. Gallbladder demonstrates no significant CT abnormality. Biliary system is non dilated. There is focal inflammatory change seen surrounding the pancreas, particularly along the tail of the pancreas. Pancreatic duct measures at the upper limits of normal at 3 mm. There is a cystic lesion seen adjacent to the tail of the pancreas that measures up to 4.9 cm. Medial to this primary fluid collection, there is an additional smaller collection seen, as on series 2 image 23 measuring 3.2 cm. Associated free fluid is seen, including free fluid layering within the pelvis. Spleen is normal in size and enhancement. No adrenal nodules. Kidneys demonstrate normal size and enhancement, without hydronephrosis. At the inferior pole of the right kidney, there is a simple appearing cyst seen that measures 13 Hounsfield units and 1.8 cm. Peritoneum and bowel: There is thickening of the wall of the proximal stomach. Bowel loops demonstrate normal wall thickness and caliber. No free air. Diverticulosis is seen, without findings of active diverticulitis. Nodes and vessels: No retroperitoneal or mesenteric adenopathy by size criteria. Aorta and inferior vena cava are normal in size. Miscellaneous: No ventral hernias. PELVIS: Genitourinary: Bladder wall thickness is normal. An apparent urinary bladder diverticulum can be seen on the right side, as on series 2 image 77. Miscellaneous: No inguinal hernias or adenopathy. Bones: No suspicious bony lesions. No vertebral body compression fractures. Degenerative changes are seen throughout, which are most prominent at the L5-S1 level. IMPRESSION: These imaging findings are most compatible with pancreatitis with associated pseudocysts and inflammatory change of the adjacent stomach. However, differential diagnosis includes a gastric process with related fluid collections and secondary related elevated lipase. Associated free fluid is seen, including free fluid layering within the pelvis. Followup imaging is recommended. When clinically appropriate, an upper endoscopy is also suggested. Incidental note is made of: Bladder diverticulum Simple appearing right renal cyst Diverticulosis is seen, without findings of active diverticulitis. Focal L5-S1 degenerative change Dictated by: Daren Sahu M.D. on 05/22/2018 at 12:49 Approved by: Daren Sahu M.D. on 05/22/2018 at 12:58 ADDENDUM: This case was reviewed at the request of Penelope Dickinson and discussed with her by telephone at 3:59 PM [place] time on May 22, 2018. Concordant findings discussed. Given the lack of rim enhancement, the above process is more likely inflammatory and less likely infectious. However, infection remains within the differential. Please consider workup for the possibility of a primary gastric process, when clinically appropriate. Dictated by: Daren Sahu M.D. on 05/22/2018 at 14:57 Approved by: Daren Sahu M.D. on 05/22/2018 at 15:00 Addendum Dictated By:Daren Sahu MD Addendum Signed By: Addendum Cosigned By: DD/ TD/TT: 05/22/18 PROCEDURE: CT ABDOMEN PELVIS W CON INDICATIONS: LEFT UPPER ABD pain, elevated lipase TECHNIQUE: After the administration of intravenous contrast, 5 mm thick sections acquired from the diaphragm to the symphysis. 5 mm coronal and sagittal reformats were acquired. For radiation dose reduction, the following was used: automated exposure control, adjustment of mA and/or kV according to patient size. COMPARISON: None. FINDINGS: Image quality: Excellent. ABDOMEN: Lung bases: Lung likely scarring can be seen within the dependent right lower lobe. Heart size is normal. Solid organs: Liver is normal in size and enhancement. Incidental note is made of focal fatty infiltration adjacent to the falciform ligament, which is not regarded to be pathologic. Gallbladder demonstrates no significant CT abnormality. Biliary system is non dilated. There is focal inflammatory change seen surrounding the pancreas, particularly along the tail of the pancreas. Pancreatic duct measures at the upper limits of normal at 3 mm. There is a cystic lesion seen adjacent to the tail of the pancreas that measures up to 4.9 cm. Medial to this primary fluid collection, there is an additional smaller collection seen, as on series 2 image 23 measuring 3.2 cm. Associated free fluid is seen, including free fluid layering within the pelvis. Spleen is normal in size and enhancement. No adrenal nodules. Kidneys demonstrate normal size and enhancement, without hydronephrosis. At the inferior pole of the right kidney, there is a simple appearing cyst seen that measures 13 Hounsfield units and 1.8 cm. Peritoneum and bowel: There is thickening of the wall of the proximal stomach. Bowel loops demonstrate normal wall thickness and caliber. No free air. Diverticulosis is seen, without findings of active diverticulitis. Nodes and vessels: No retroperitoneal or mesenteric adenopathy by size criteria. Aorta and inferior vena cava are normal in size. Miscellaneous: No ventral hernias. PELVIS: Genitourinary: Bladder wall thickness is normal. An apparent urinary bladder diverticulum can be seen on the right side, as on series 2 image 77. Miscellaneous: No inguinal hernias or adenopathy. Bones: No suspicious bony lesions. No vertebral body compression fractures. Degenerative changes are seen throughout, which are most prominent at the L5-S1 level. IMPRESSION: These imaging findings are most compatible with pancreatitis with associated pseudocysts and inflammatory change of the adjacent stomach. However, differential diagnosis includes a gastric process with related fluid collections and secondary related elevated lipase. Associated free fluid is seen, including free fluid layering within the pelvis. Followup imaging is recommended. When clinically appropriate, an upper endoscopy is also suggested. Incidental note is made of: Bladder diverticulum Simple appearing right renal cyst Diverticulosis is seen, without findings of active diverticulitis. Focal L5-S1 degenerative change Dictated by: Daren Sahu M.D. on 05/22/2018 at 12:49 Approved by: Daren Sahu M.D. on 05/22/2018 at 12:58 US - abdomen: Radiologist's impression: [address] [address] Ultrasound Report Signed Patient: Zion Winter QMR#: [id number] : 1960Acct:[id number] Age/Sex: 57 / MDate of Service: 05/22/18 Loc: ED Accession Number: [id number] Procedure: US abdomen limited Ordering Provider: Penelope Dickinson-BC PROCEDURE: US ABDOMEN LIMITED INDICATIONS: PAIN; FOLLOW-UP CT OF TODAY TECHNIQUE: Real-time focused scanning was performed of the abdomen, with image documentation. COMPARISON: [facility], CT, CT ABDOMEN PELVIS W MYRA, 05/22/2018, 13:18. FINDINGS: The gallbladder is within normal limits. No gallbladder wall thickening, pericholecystic fluid, or cholelithiasis is identified. There is no intrahepatic or extrahepatic biliary dilatation. The common bile duct measures up to approximately 5 mm in diameter. The pancreas is noted to be hypoechoic. No fluid collections along the tail of the pancreas are not well characterized. One measures at least 19 mm in diameter. The main pancreatic duct measures up to 3 mm in diameter. IMPRESSION: 1. No cholelithiasis. 2. Hypoechogenicity of the pancreas is suggestive of pancreatitis. 3. 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 Dictated by: Vincent Johnson M.D. on 05/22/2018 at 15:44 Approved by: Vincent Johnson M.D. on 05/22/2018 at 15:46 ECG Data Attestation: I personally reviewed and interpreted this ECG as follows: Interpretation: Sinus rhythm. Ventricular rate 95. No ectopy noted. No ST elevation or depression. TN interval 120 QRS 103 MDM Narrative Medical decision making narrative: Patient is a 57-year-old male who presents with left upper GI pain. He was in obvious pain upon admission, but hemodynamically stable throughout his stay in the emergency department. Basic labs and imaging were done. The patient was found have an elevated lipase at over 1500 as well as concern for pancreatitis on his CT and ultrasound. He was noted to have pseudocyst and gastrc inflammation noted on CT as well. Given that the hospitalist at this location was not comfortable admitting this patient , he was transferred down to [facility]. He was started on IV fluids, given 2 L bolus in the emergency department as well as medications for pain and nausea control. He had no questions or concerns upon transfer. He remained hemodynamically stable throughout his stay in the emergency department and stated his pain and what nausea or much improved with medications. <Sharla Avalos, DO - Last Filed: 05/23/18 07:55> Lab Data Lab Results 05/22/18 05/22/18 05/22/18 Range/Units 12:25 12:25 12:25 WBC 14.4 H (4.5-11.0) X10^3/uL RBC 4.87 (4.5-5.9) X10^6/uL Hgb 14.9 (13.5-17.5) g/dL Hct 44.1 (41-53) % MCV 90.6 (80-100) fL MCH 30.7 (26-34) PG MCHC 33.9 (30-36) % RDW 11.9 (11.6-14.8) % Plt Count 315 (150-400) X10^3/uL Neut % (Auto) 82.3 H (50-75) % Lymph % (Auto) 4.4 L (25-40) % [place] % (Auto) 12.6 (3-14) % Eos % (Auto) 0.2 L (2-4) % Baso % (Auto) 0.5 (0-2) % Neut # (Auto) 64428 H (6662-2873) /uL Sodium 135 L (137-145) mmol/L Potassium 3.9 (3.4-5.1) mmol/L Chloride 98 (98-107) mmol/L Carbon Dioxide 23 (22-32) mmol/L BUN 15 (9-20) mg/dL Creatinine 0.60 L (0.66-1.25) mg/dL Estimated GFR > 60.0 (>60) mL/min BUN/Creatinine Ratio 25.0 H (6-22) Glucose 139 H (70-100) mg/dL Lactate 1.5 (0.7-2.1) mmol/L Calcium 9.5 (8.4-10.2) mg/dL Total Bilirubin 0.7 (0.2-1.3) mg/dL AST 22 (17-59) IU/L ALT 21 (21-72) IU/L Alkaline Phosphatase 83 (38-126) U/L Total Creatine Kinase 34 L (55-170) U/L CK-MB (CK-2) TNP CK-MB (CK-2) Rel Index TNP Troponin I < 0.012 (0.01-0.034) ng/mL Total Protein 8.3 H (6.3-8.2) g/dL Albumin 4.6 (3.5-5.0) g/dL Globulin 3.7 (1.7-4.1) g/dL Albumin/Globulin Ratio 1.2 (1.0-2.8) Amylase 190 H (30-110) U/L Lipase 1518 H (23-300) U/L Influenza A & B (PCR) (Negative) 05/22/18 Range/Units 12:50 WBC (4.5-11.0) X10^3/uL RBC (4.5-5.9) X10^6/uL Hgb (13.5-17.5) g/dL Hct (41-53) % MCV (80-100) fL MCH (26-34) PG MCHC (30-36) % RDW (11.6-14.8) % Plt Count (150-400) X10^3/uL Neut % (Auto) (50-75) % Lymph % (Auto) (25-40) % [place] % (Auto) (3-14) % Eos % (Auto) (2-4) % Baso % (Auto) (0-2) % Neut # (Auto) (8287-1814) /uL Sodium (137-145) mmol/L Potassium (3.4-5.1) mmol/L Chloride (98-107) mmol/L Carbon Dioxide (22-32) mmol/L BUN (9-20) mg/dL Creatinine (0.66-1.25) mg/dL Estimated GFR (>60) mL/min BUN/Creatinine Ratio (6-22) Glucose (70-100) mg/dL Lactate (0.7-2.1) mmol/L Calcium (8.4-10.2) mg/dL Total Bilirubin (0.2-1.3) mg/dL AST (17-59) IU/L ALT (21-72) IU/L Alkaline Phosphatase (38-126) U/L Total Creatine Kinase (55-170) U/L CK-MB (CK-2) CK-MB (CK-2) Rel Index Troponin I (0.01-0.034) ng/mL Total Protein (6.3-8.2) g/dL Albumin (3.5-5.0) g/dL Globulin (1.7-4.1) g/dL Albumin/Globulin Ratio (1.0-2.8) Amylase (30-110) U/L Lipase (23-300) U/L Influenza A & B (PCR) Negative (Negative) Point of care testing: Urine Dip Bedside Urine Glucose Negative Bedside Urine Bilirubin - Negative Bedside Urine Ketone +++ 80 Urine Specific [place] 1.010 Bedside Urine Occult Blood - Negative Bedside Urine pH 5.5 Bedside Urine Protein +/- 15 Bedside Urine Urobilinogen +/- 1mg Bedside Urine Nitrite - Negative Bedside Urine Leukocytes - Negative Esterase Discharge Plan Departure Patient Disposition: [facility] Clinical Impression: Acute pancreatitis, Abdominal pain, Pancreatic pseudocyst Discharge Date/Time: 05/22/18 19:27 Interventions: ED Discharge Assessment Last Done: 05/22/18 19:15 Prescriptions: No Action No Known Home Medications RF: 0 <Sharla Avalos DO - Last Filed: 05/23/18 07:55> Cosign ED Attending Cosignature Attestation: I was immediately available in the department for consultation. Documentation has been reviewed. I agree with assessment and plan.
[2018-05-22 12:57] LABS: Add Manual Diff / Slide Review NO; Basophils Percent Auto 0.5 % (0-2); Eosinophils Percent Auto 0.2 % (2-4); Hematocrit 44.1 % (41-53); Hemoglobin 14.9 g/dL (13.5-17.5); Lymphocytes Percent Auto 4.4 % (25-40); Mean Corpuscular HGB Conc 33.9 % (30-36); Mean Corpuscular Hemoglobin 30.7 PG (26-34); Mean Corpuscular Volume 90.6 fL (80-100); Monocytes Percent Auto 12.6 % (3-14); Neutrophils Absolute Auto 11800 /uL (3000-5900); Neutrophils Percent Auto 82.3 % (50-75); Platelet Count 315 X10^3/uL (150-400); Red Blood Cell Count 4.87 X10^6/uL (4.5-5.9); Red Cell Distribution Width 11.9 % (11.6-14.8); White Blood Cell Count 14.4 X10^3/uL (4.5-11.0)
[2018-05-22 13:00] LABS: Alanine Aminotransferase 21 IU/L (21-72); Albumin 4.6 g/dL (3.5-5.0); Albumin Globulin Ratio 1.2 (1.0-2.8); Alkaline Phosphatase 83 U/L (38-126); Aspartate Aminotransferase 22 IU/L (17-59); Bilirubin Total 0.7 mg/dL (0.2-1.3); Blood Urea Nitrogen 15 mg/dL (9-20); Calcium 9.5 mg/dL (8.4-10.2); Carbon Dioxide 23 mmol/L (22-32); Chloride 98 mmol/L (98-107); Creatine Kinase 34 U/L (55-170); Estimated Glomerular Filt Rate > 60.0 mL/min (>60); Globulin 3.7 g/dL (1.7-4.1); Glucose 139 mg/dL (70-100); HEMOLYSIS 19 (0-50); Lipase 1518 U/L (23-300); Potassium 3.9 mmol/L (3.4-5.1); Sodium 135 mmol/L (137-145); Total Protein 8.3 g/dL (6.3-8.2)
[2018-05-22 13:01] LABS: Lactate (Lactic Acid) 1.5 mmol/L (0.7-2.1)
[2018-05-22 13:11] LABS: Influenza A and B by PCR Rapid Negative (Negative)
[2018-05-22 13:25] LABS: Troponin I < 0.012 ng/mL (0.01-0.034)
[2018-05-22 13:36] LABS: Amylase 190 U/L (30-110)
--- NOTE | 2018-05-22 13:38 | DI.CT.S_ITS ---
PROCEDURE: CT ABDOMEN PELVIS W CON INDICATIONS: LEFT UPPER ABD pain, elevated lipase TECHNIQUE: After the administration of intravenous contrast, 5 mm thick sections acquired from the diaphragm to the symphysis. 5 mm coronal and sagittal reformats were acquired. For radiation dose reduction, the following was used: automated exposure control, adjustment of mA and/or kV according to patient size. COMPARISON: None. FINDINGS: Image quality: Excellent. ABDOMEN: Lung bases: Lung likely scarring can be seen within the dependent right lower lobe. Heart size is normal. Solid organs: Liver is normal in size and enhancement. Incidental note is made of focal fatty infiltration adjacent to the falciform ligament, which is not regarded to be pathologic. Gallbladder demonstrates no significant CT abnormality. Biliary system is non dilated. There is focal inflammatory change seen surrounding the pancreas, particularly along the tail of the pancreas. Pancreatic duct measures at the upper limits of normal at 3 mm. There is a cystic lesion seen adjacent to the tail of the pancreas that measures up to 4.9 cm. Medial to this primary fluid collection, there is an additional smaller collection seen, as on series 2 image 23 measuring 3.2 cm. Associated free fluid is seen, including free fluid layering within the pelvis. Spleen is normal in size and enhancement. No adrenal nodules. Kidneys demonstrate normal size and enhancement, without hydronephrosis. At the inferior pole of the right kidney, there is a simple appearing cyst seen that measures 13 Hounsfield units and 1.8 cm. Peritoneum and bowel: There is thickening of the wall of the proximal stomach. Bowel loops demonstrate normal wall thickness and caliber. No free air. Diverticulosis is seen, without findings of active diverticulitis. Nodes and vessels: No retroperitoneal or mesenteric adenopathy by size criteria. Aorta and inferior vena cava are normal in size. Miscellaneous: No ventral hernias. PELVIS: Genitourinary: Bladder wall thickness is normal. An apparent urinary bladder diverticulum can be seen on the right side, as on series 2 image 77. Miscellaneous: No inguinal hernias or adenopathy. Bones: No suspicious bony lesions. No vertebral body compression fractures. Degenerative changes are seen throughout, which are most prominent at the L5-S1 level. IMPRESSION: These imaging findings are most compatible with pancreatitis with associated pseudocysts and inflammatory change of the adjacent stomach. However, differential diagnosis includes a gastric process with related fluid collections and secondary related elevated lipase. Associated free fluid is seen, including free fluid layering within the pelvis. Followup imaging is recommended. When clinically appropriate, an upper endoscopy is also suggested. Incidental note is made of: Bladder diverticulum Simple appearing right renal cyst Diverticulosis is seen, without findings of active diverticulitis. Focal L5-S1 degenerative change Dictated by: Daren Sahu M.D. on 05/22/2018 at 12:49 Approved by: Daren Sahu M.D. on 05/22/2018 at 12:58
[2018-05-22] MEDS: SODIUM CHLORIDE 0.9% 1,000 ML 1000 ML IV (14:32)
--- NOTE | 2018-05-22 14:59 | DI.US.S_ITS ---
PROCEDURE: US ABDOMEN LIMITED INDICATIONS: PAIN; FOLLOW-UP CT OF TODAY TECHNIQUE: Real-time focused scanning was performed of the abdomen, with image documentation. COMPARISON: [facility], CT, CT ABDOMEN PELVIS W CON, 05/22/2018, 13:18. FINDINGS: The gallbladder is within normal limits. No gallbladder wall thickening, pericholecystic fluid, or cholelithiasis is identified. There is no intrahepatic or extrahepatic biliary dilatation. The common bile duct measures up to approximately 5 mm in diameter. The pancreas is noted to be hypoechoic. No fluid collections along the tail of the pancreas are not well characterized. One measures at least 19 mm in diameter. The main pancreatic duct measures up to 3 mm in diameter. IMPRESSION: 1. No cholelithiasis. 2. Hypoechogenicity of the pancreas is suggestive of pancreatitis. 3. 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 Dictated by: Vincent Johnson M.D. on 05/22/2018 at 15:44 Approved by: Vincent Johnson M.D. on 05/22/2018 at 15:46
--- NOTE | 2018-05-22 17:39 | PC.NURSE ---
josé luis/ [facility] / transfer center called for report. given. will relay message and will call us on bed.
== END 2018-05-22 19:27 | disposition short-term general hospital (02) ==
PROVIDERS: Emergency Medicine; Emergency Provider Nurse Practitioner Family
DX: K85.90 Acute pancreatitis without necrosis or infection, unspecified (principal); K86.3 Pseudocyst of pancreas; R10.9 Unspecified abdominal pain
CPT/HCPCS: 36591; 74177; 76705; 80053; 81003; 82150; 82550; 83605; 83690; 84484; 85025; 87400; 93005; 96361; 96374; 96375; 96376; 99284; 99285; J2270; J2405; Q9967

== ENCOUNTER 2020-08-20 13:16 | Emergency (ER) | payer OTHER, MEDICAID, SELFPAY ==
[2020-08-20] VITALS (12 sets, daily range): BP systolic 114–122; BP diastolic 65–86; PULSE 83–116; RESP 16–29; TEMP 37.2; O2SAT 93–97; BMI 19.6
--- NOTE | 2020-08-20 13:18 | DI.RAD.S_ITS ---
PROCEDURE: XR CHEST 1V INDICATIONS: chest pain TECHNIQUE: One view of the chest was acquired. COMPARISON: None. FINDINGS: Surgical changes and devices: None. Lungs and pleura: Moderate to large possibly loculated left pleural effusion with adjacent atelectasis. There is also increased retrocardiac opacity. Mediastinum: Mediastinal contours appear normal. Heart size is normal. Bones and chest wall: No suspicious bony lesions. Overlying soft tissues appear unremarkable. IMPRESSION: Moderate to large loculated appearing left pleural effusion with adjacent atelectasis. Additional retrocardiac consolidation. Underlying infection or neoplastic possibilities cannot be excluded and recommend clinical correlation. If necessary, further evaluation with CT chest could be performed. Dictated by: Song Emery M.D. on 08/20/2020 at 13:43 Approved by: Song Emery M.D. on 08/20/2020 at 13:45
[2020-08-20 13:29] LABS: Hematocrit 27.7 % (41-53); Hemoglobin 8.6 g/dL (13.5-17.5); Mean Corpuscular HGB Conc 31.1 % (30-36); Mean Corpuscular Hemoglobin 23.9 PG (26-34); Mean Corpuscular Volume 76.8 fL (80-100); Platelet Count 579 X10^3/uL (150-400); Red Cell Distribution Width 17.7 % (11.6-14.8); White Blood Cell Count 20.5 X10^3/uL (4.5-11.0)
--- NOTE | 2020-08-20 13:37 | ED.GENADULT ---
HPI - General Adult General Chief complaint: Abdominal Pain Stated complaint: ABD PX Time Seen by Provider: 08/20/20 13:17 Source: patient Mode of arrival: EMS Limitations: no limitations History of Present Illness HPI narrative: Patient is a 59-year-old male with a prior history of pancreatitis requiring hospital admission. He states that a couple weeks ago he started having left-sided abdominal pain that feels similar to his pancreatitis and feels it has been worsening since then. No urinary symptoms. No change in bowel habits. No nausea vomiting. He has been drinking fluids but has little other oral intake over the past couple days. He also noticed a couple days ago that he was having a cough. The cough causes his abdomen to her worse. The cough specifically occurs at night. It is nonproductive. Related Data Home Medications Medication Instructions Recorded Confirmed No Known Home Medications 05/22/18 05/22/18 Allergies Allergy/AdvReac Type Severity Reaction Status Date / Time No Known Drug Allergies Allergy Verified 08/20/20 13:25 Review of Systems Constitutional Constitutional: Denies fever(s) and Denies headache(s) ENT Ears, Nose, Mouth, and Throat: Denies headache(s) Cardiovascular Cardiovascular: Denies chest pain and Reports dyspnea Respiratory Respiratory: Reports cough and Reports dyspnea Gastrointestinal Gastrointestinal: Reports abdominal pain and Denies change in bowel habits Genitourinary Genitourinary: Denies dysuria Genitourinary: Denies dysuria Musculoskeletal Musculoskeletal: Denies arthralgias and Denies myalgias Integumentary/Breasts Skin/Breast: Denies lesions and Denies rash Neurologic Neurologic: Denies behavioral changes and Denies headache(s) Psychiatric Psychiatric: Denies behavioral changes Hematologic/Lymphatic On Anticoagulants: No Allergic/Immunologic Allergic/Immunologic: Denies urticaria Patient History Medical History Back pain Pancreatitis Social History Smoking Status: Unknown if ever smoked substance use type: does not use Smoking Status: Unknown if ever smoked alcohol intake frequency: holidays/special occasions only Substance Use Type: does not use Exam Initial Vital Signs Initial Vital Signs: Vital Signs Temperature 98.9 F 08/20/20 13:15 Pulse Rate 112 H 08/20/20 13:15 Respiratory Rate 16 08/20/20 13:15 Blood Pressure 118/67 08/20/20 13:15 Pulse Oximetry 96 08/20/20 13:15 Const General: cooperative Nutritional Appearance: cachectic Limitations: mental status not altered HENMT Head: normal to inspection and normocephalic Resp Effort & Inspection: normal respiratory effort Auscultation: clear to auscultation bilaterally Cardio Rate: tachycardic Rhythm: regular rhythm GI Inspection: non-distended Palpation: soft and tender (Diffusely tender left being greater than right) Back/Spine/Pelvis Back: No CVA tenderness Skin Lesions: no lesions Rashes: no rashes Neuro General: patient alert and patient awake Cognition: normal cognition Speech: speech normal Extrem General: normal to inspection, capillary refill normal and No edema Psych Appearance: grossly normal and well kempt Course Orders Ordered: ED Orders 08/20/20 13:18 XR chest 1V Stat 08/20/20 13:19 Amylase Stat COVID19 Stat Complete Blood Count AUTO DIFF Stat Comprehensive Metabolic Panel Stat Ethanol (ETOH) Stat Hepatitis Acute Panel Stat Lactate (Lactic Acid) Stat Lipase Stat Troponin & CK Cardiac Panel Stat 08/20/20 13:21 EKG-12 Lead Stat 08/20/20 13:30 Procalcitonin Stat 08/20/20 13:43 Blood Culture Stat 08/20/20 13:52 CT chest abd pel w con Stat 08/20/20 15:00 Blood Culture Stat Sodium Chloride (Normal Saline 0.9%) 1,000 mls @ 150 mls/hr IV CONT COMFORT Last Admin: 08/20/20 13:42 Dose: 150 mls/hr Documented by: NATHANAELOTEM Discontinued Medications Ceftriaxone Sodium/Dextrose (Rocephin) 1 gm in 50 mls @ 100 mls/hr IV NOW ONE Stop: 08/20/20 14:13 Last Infusion: 08/20/20 14:29 Dose: 0 mls/hr Documented by: Admin: 08/20/20 13:57 Dose: 100 mls/hr Documented by: EDEN Vancomycin HCl (Vancomycin) 1,000 mg in 200 mls @ 200 mls/hr IV NOW ONE Stop: 08/20/20 15:47 Last Infusion: 08/20/20 16:06 Dose: 0 mls/hr Documented by: Admin: 08/20/20 15:05 Dose: 200 mls/hr Documented by: EDEN Morphine Sulfate (Morphine 4 Mg/Ml Inj) 4 mg IV NOW ONE Stop: 08/20/20 15:49 Last Admin: 08/20/20 15:56 Dose: 4 mg Documented by: EDEN Vital Signs Vital signs: Vital Signs - 8 hr 08/20/20 13:15 08/20/20 13:20 08/20/20 13:21 Temperature 98.9 F Pulse Rate 112 H 116 H Respiratory Rate 16 Blood Pressure 118/67 118/67 Pulse Oximetry 96 97 08/20/20 13:30 08/20/20 14:02 08/20/20 14:30 Temperature Pulse Rate 106 H 101 H 92 H Respiratory Rate 22 28 H Blood Pressure 119/65 Pulse Oximetry 96 96 95 08/20/20 15:00 08/20/20 15:06 08/20/20 15:30 Temperature Pulse Rate 92 H 91 H 88 Respiratory Rate 25 H 28 H 27 H Blood Pressure 122/67 120/65 Pulse Oximetry 95 95 94 08/20/20 16:00 Temperature Pulse Rate 94 H Respiratory Rate 29 H Blood Pressure 116/71 Pulse Oximetry 93 Medical Decision Making Medical Records Medical records reviewed: Yes I reviewed the patient's medical records. Lab Data Lab results reviewed: Yes I reviewed the patient's lab results. Result diagrams: 08/20/20 13:19 08/20/20 13:19 Labs: Lab Results 08/20/20 08/20/20 08/20/20 Range/Units 13:19 13:19 13:19 WBC 20.5 H (4.5-11.0) X10^3/uL RBC 3.60 L (4.5-5.9) X10^6/uL Hgb 8.6 L (13.5-17.5) g/dL Hct 27.7 L (41-53) % MCV 76.8 L (80-100) fL MCH 23.9 L (26-34) PG MCHC 31.1 (30-36) % RDW 17.7 H (11.6-14.8) % Plt Count 579 H (150-400) X10^3/uL Neut % (Auto) Not Reportable Lymph % (Auto) Not Reportable [place] % (Auto) Not Reportable Eos % (Auto) Not Reportable Baso % (Auto) Not Reportable Lymph # (Auto) Not Reportable [place] # (Auto) Not Reportable Baso # (Auto) Not Reportable Total Counted 100 Seg Neutrophils % 66.0 (38-70) % Band Neutrophils % 22.0 H (3-7) % Lymphocytes % (Manual) 5.0 L (25-45) % Monocytes % (Manual) 7.0 (2-11) % Neutrophils # (Manual) 88827 H (1449-4507) /uL RBC Morphology See below Hypochromasia 2+ H Poikilocytosis 1+ H Anisocytosis 1+ H Sodium 128 L (137-145) mmol/L Potassium 3.6 (3.4-5.1) mmol/L Chloride 92 L (98-107) mmol/L Carbon Dioxide 28 (22-32) mmol/L BUN 12 (9-20) mg/dL Creatinine 0.52 L (0.66-1.25) mg/dL Estimated GFR > 60.0 (>60) mL/min BUN/Creatinine Ratio 23.1 H (6-22) Glucose 130 H (70-100) mg/dL Lactate (0.7-2.1) mmol/L Calcium 9.3 (8.4-10.2) mg/dL Total Bilirubin 0.5 (0.2-1.3) mg/dL AST 29 (17-59) IU/L ALT 21 (<50) IU/L Alkaline Phosphatase 150 H (38-126) U/L Total Creatine Kinase 21 L (55-170) U/L CK-MB (CK-2) TNP CK-MB (CK-2) Rel Index TNP Troponin I < 0.012 (0.01-0.034) ng/mL Total Protein 7.5 (6.3-8.2) g/dL Albumin 3.6 (3.5-5.0) g/dL Globulin 3.9 (1.7-4.1) g/dL Albumin/Globulin Ratio 0.9 L (1.0-2.8) Amylase (30-110) U/L Lipase 59 (23-300) U/L Procalcitonin (<0.5) ng/mL Ethyl Alcohol < 10 ( - 10) mg/dL SARS-CoV-2 (PCR) Negative (Negative) 08/20/20 08/20/2008/20/21 Range/Units 13:19 13:19 13:30 WBC (4.5-11.0) X10^3/uL RBC (4.5-5.9) X10^6/uL Hgb (13.5-17.5) g/dL Hct (41-53) % MCV (80-100) fL MCH (26-34) PG MCHC (30-36) % RDW (11.6-14.8) % Plt Count (150-400) X10^3/uL Neut % (Auto) Lymph % (Auto) [place] % (Auto) Eos % (Auto) Baso % (Auto) Lymph # (Auto) [place] # (Auto) Baso # (Auto) Total Counted Seg Neutrophils % (38-70) % Band Neutrophils % (3-7) % Lymphocytes % (Manual) (25-45) % Monocytes % (Manual) (2-11) % Neutrophils # (Manual) (0299-6239) /uL RBC Morphology Hypochromasia Poikilocytosis Anisocytosis Sodium (137-145) mmol/L Potassium (3.4-5.1) mmol/L Chloride (98-107) mmol/L Carbon Dioxide (22-32) mmol/L BUN (9-20) mg/dL Creatinine (0.66-1.25) mg/dL Estimated GFR (>60) mL/min BUN/Creatinine Ratio (6-22) Glucose (70-100) mg/dL Lactate 1.6 (0.7-2.1) mmol/L Calcium (8.4-10.2) mg/dL Total Bilirubin (0.2-1.3) mg/dL AST (17-59) IU/L ALT (<50) IU/L Alkaline Phosphatase (38-126) U/L Total Creatine Kinase (55-170) U/L CK-MB (CK-2) CK-MB (CK-2) Rel Index Troponin I (0.01-0.034) ng/mL Total Protein (6.3-8.2) g/dL Albumin (3.5-5.0) g/dL Globulin (1.7-4.1) g/dL Albumin/Globulin Ratio (1.0-2.8) Amylase 32 (30-110) U/L Lipase (23-300) U/L Procalcitonin 0.24 (<0.5) ng/mL Ethyl Alcohol ( - 10) mg/dL SARS-CoV-2 (PCR) (Negative) Imaging Data CT chest/abd/pelvis: Radiologist's Impression: [address] [id number] Scan ReportSigned Patient: Zion Winter QMR#: [id number]: [id number]:[id number]/Sex: 59 / MDate of Service: 08/20/20Loc: EDAccession Number: [id number] Procedure: CT chest abd pel w con Ordering Provider: Jean Carlos Tamez D.O. PROCEDURE: CT CHEST ABD PEL W CON INDICATIONS: Cough, abdominal pain, history pancreatitis TECHNIQUE: After the administration of intravenous contrast, 5 mm thick sections acquired from the lung apices to the symphysis. 2.5 mm thick coronal and sagittal reformats were acquired. Additional 7 mm thick coronal maximum intensity projection (MIP) reformats acquired through the lungs. Optional 10-minute delayed imaging may be performed from the kidneys to the bladder. For radiation dose reduction, the following was used: automated exposure control, adjustment of mA and/or kV according to patient size. COMPARISON: [facility], CT, CT ABDOMEN PELVIS W CON, 05/22/2018, 13:18. FINDINGS: Image quality: Excellent. CHEST: Lungs: There is collapse of much of the left lower lobe and of small portion of the left upper lobe. There is a pulmonary abscess present on the left, involving the basilar portion of the left lower lobe, measuring 5.0 x 3.5 x 4.7 cm. There is extensive empyema involving the left pleural space. The right lung is clear. Mediastinum: Heart size is normal. There are findings suggesting possible bacterial pericarditis. There is moderate pericardial fluid which may be loculated at the left heart border. Thoracic aorta and pulmonary arteries demonstrate normal size and enhancement. An enlarged subcarinal lymph node measures 2.2 cm. Esophagus is normal in caliber. No hiatal hernia. Chest wall: No rib lesion seen. No axillary or supraclavicular adenopathy. Thyroid gland is unremarkable. ABDOMEN: Solid organs: Multiple ill-defined low-density lesions have developed in the liver, which in the setting of the chest findings is most suspicious for numerous possible liver abscesses. A customer success representative images image 71/2, where there are 3 separate hypodensities in the left lobe, measuring 1.8, 1.5, and 1.2 cm respectively. On image 75/2, there is a right lobe liver hypodensity measuring 2.1 cm. On image 80/2 is a liver hypodensity in the posterior segment of the right lobe measuring 2.2 cm. An alternative explanation for the liver lesions would be hepatic metastatic disease. Gallbladder is unremarkable. Biliary system is non-dilated. Pancreas is markedly abnormal. There is a fluid collection in the expected location of the pancreatic tail which measures approximately 3.0 x 1.7 cm in diameter. The body of the pancreas is hypoattenuating. The head and uncinate process are relatively normal in appearance. Spleen is normal in size and enhancement. The left adrenal was previously normal in size. It is now diffusely enlarged. The right adrenal is unremarkable. Both kidneys enhance normally, without hydronephrosis . Peritoneum and bowel: There is marked thickening of the distal body and antrum of the stomach. Consider extensive gastritis. Malignancy cannot be excluded. Unenhanced bowel loops demonstrate normal wall thickness and caliber. There is free fluid in the abdomen and pelvis. There is a small abscess anterior to the left lobe of the liver measuring 2.2 x 0.8 cm. Nodes and vessels: No retroperitoneal or mesenteric adenopathy. Aorta and inferior vena cava are normal in size and enhancement. 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 Miscellaneous: No ventral hernias. PELVIS: Genitourinary: Bladder wall thickness is normal. Miscellaneous: No inguinal hernias or adenopathy. Bones: No bony lesions identified. No vertebral compression fractures. IMPRESSION: 1. Markedly abnormal appearance of left hemithorax. There is a left lower lobe parenchymal abscess measuring 5 cm in maximum diameter. There is extensive left empyema. There is collapse of most of the left lower lobe and a portion of the left upper lobe. 2. There is a pericardial effusion. Findings include an apparently loculated collection of fluid adjacent to the left heart border and apex of the heart. Differential includes bacterial pericarditis. 3. Numerous low-density liver lesions have developed since the prior study. Consider liver abscesses versus liver metastatic disease. 4. There is a small abscess anterior to the left lobe of the liver. 5. Markedly abnormal appearance of the pancreas. There is a fluid collection in the expected location of the tail which may represent a pseudocyst. The body of the pancreas is low-density. 6. Extensive inflammation involving the distal body and antrum of the stomach. Consider inflammation related to an extrinsic process versus primary gastric inflammation versus malignancy. 7. Abdominal ascites. Comment: Findings were discussed with Dr. Tamez at the time of study dictation. Dictated by: Glen Rick M.D. on 08/20/2020 at 14:31 Approved by: Glen Rick M.D. on 08/20/2020 at 14:58 ECG Data Attestation: I personally reviewed and interpreted this ECG as follows: Prior ECG tracings: not available for review Interpretation: Sinus tachycardia Ventricular rate 104 Normal axis Normal QRS Artifact noted No obvious ST T wave changes MDM Narrative Medical decision making narrative: Patient is cachectic appearing and does not appear well. He has not been hypotensive but has been tachycardic and tachypneic. Has a leukocytosis. Also is hyponatremic. Kidney functions unremarkable. His lipase is unremarkable however the CT scan of his chest abdomen pelvis show multiple abnormalities to include potential lung abscesses, empyema, pericardial fluid (he has no signs of tamponade), potential liver abscess is another issues. I do feel that given the findings on the CT scan that he would be better off at a facility that had pulmonology, interventional Radiology, Cardiology, GI, Oncology. Which we do not have at this facility. I did discuss the case with Dr. Diaz who is the hospitalist at [facility] who accepts the patient in transfer. I did discuss findings of the CT scan with the patient and discuss the need for the transfer. He expressed understanding and agreement. Patient is currently stable for transfer. Discharge Plan Departure Patient Disposition: [facility] Clinical Impression: Empyema, Abscess of liver, Pericardial effusion, Hyponatremia, Leukocytosis Prescriptions: No Action No Known Home Medications RF: 0
[2020-08-20 13:41] LABS: Alanine Aminotransferase 21 IU/L (<50); Albumin 3.6 g/dL (3.5-5.0); Albumin Globulin Ratio 0.9 (1.0-2.8); Alkaline Phosphatase 150 U/L (38-126); Aspartate Aminotransferase 29 IU/L (17-59); BUN Creatinine Ratio 23.1 (6-22); Bilirubin Total 0.5 mg/dL (0.2-1.3); Blood Urea Nitrogen 12 mg/dL (9-20); Calcium 9.3 mg/dL (8.4-10.2); Carbon Dioxide 28 mmol/L (22-32); Chloride 92 mmol/L (98-107); Creatine Kinase 21 U/L (55-170); Estimated Glomerular Filt Rate > 60.0 mL/min (>60); Ethanol (ETOH) < 10 mg/dL; Globulin 3.9 g/dL (1.7-4.1); Glucose 130 mg/dL (70-100); HEMOLYSIS < 15 (0-50); Lipase 59 U/L (23-300); Potassium 3.6 mmol/L (3.4-5.1); Sodium 128 mmol/L (137-145); Total Protein 7.5 g/dL (6.3-8.2)
[2020-08-20 13:42] LABS: Add Manual Diff / Slide Review YES
[2020-08-20] MEDS: SODIUM CHLORIDE 0.9% 1,000 ML 150 ML IV (13:42)
[2020-08-20 13:45] LABS: COVID19 -Nasal RAPID Negative (Negative); Lactate (Lactic Acid) 1.6 mmol/L (0.7-2.1)
[2020-08-20 13:52] LABS: Troponin I < 0.012 ng/mL (0.01-0.034)
--- NOTE | 2020-08-20 13:52 | DI.CT.S_ITS ---
PROCEDURE: CT CHEST ABD PEL W CON INDICATIONS: Cough, abdominal pain, history pancreatitis TECHNIQUE: After the administration of intravenous contrast, 5 mm thick sections acquired from the lung apices to the symphysis. 2.5 mm thick coronal and sagittal reformats were acquired. Additional 7 mm thick coronal maximum intensity projection (MIP) reformats acquired through the lungs. Optional 10-minute delayed imaging may be performed from the kidneys to the bladder. For radiation dose reduction, the following was used: automated exposure control, adjustment of mA and/or kV according to patient size. COMPARISON: [facility], CT, CT ABDOMEN PELVIS W CON, 05/22/2018, 13:18. FINDINGS: Image quality: Excellent. CHEST: Lungs: There is collapse of much of the left lower lobe and of small portion of the left upper lobe. There is a pulmonary abscess present on the left, involving the basilar portion of the left lower lobe, measuring 5.0 x 3.5 x 4.7 cm. There is extensive empyema involving the left pleural space. The right lung is clear. Mediastinum: Heart size is normal. There are findings suggesting possible bacterial pericarditis. There is moderate pericardial fluid which may be loculated at the left heart border. Thoracic aorta and pulmonary arteries demonstrate normal size and enhancement. An enlarged subcarinal lymph node measures 2.2 cm. Esophagus is normal in caliber. No hiatal hernia. Chest wall: No rib lesion seen. No axillary or supraclavicular adenopathy. Thyroid gland is unremarkable. ABDOMEN: Solid organs: Multiple ill-defined low-density lesions have developed in the liver, which in the setting of the chest findings is most suspicious for numerous possible liver abscesses. A licensing representative images image 71/2, where there are 3 separate hypodensities in the left lobe, measuring 1.8, 1.5, and 1.2 cm respectively. On image 75/2, there is a right lobe liver hypodensity measuring 2.1 cm. On image 80/2 is a liver hypodensity in the posterior segment of the right lobe measuring 2.2 cm. An alternative explanation for the liver lesions would be hepatic metastatic disease. Gallbladder is unremarkable. Biliary system is non-dilated. Pancreas is markedly abnormal. There is a fluid collection in the expected location of the pancreatic tail which measures approximately 3.0 x 1.7 cm in diameter. The body of the pancreas is hypoattenuating. The head and uncinate process are relatively normal in appearance. Spleen is normal in size and enhancement. The left adrenal was previously normal in size. It is now diffusely enlarged. The right adrenal is unremarkable. Both kidneys enhance normally, without hydronephrosis . Peritoneum and bowel: There is marked thickening of the distal body and antrum of the stomach. Consider extensive gastritis. Malignancy cannot be excluded. Unenhanced bowel loops demonstrate normal wall thickness and caliber. There is free fluid in the abdomen and pelvis. There is a small abscess anterior to the left lobe of the liver measuring 2.2 x 0.8 cm. Nodes and vessels: No retroperitoneal or mesenteric adenopathy. Aorta and inferior vena cava are normal in size and enhancement. 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 Miscellaneous: No ventral hernias. PELVIS: Genitourinary: Bladder wall thickness is normal. Miscellaneous: No inguinal hernias or adenopathy. Bones: No bony lesions identified. No vertebral compression fractures. IMPRESSION: 1. Markedly abnormal appearance of left hemithorax. There is a left lower lobe parenchymal abscess measuring 5 cm in maximum diameter. There is extensive left empyema. There is collapse of most of the left lower lobe and a portion of the left upper lobe. 2. There is a pericardial effusion. Findings include an apparently loculated collection of fluid adjacent to the left heart border and apex of the heart. Differential includes bacterial pericarditis. 3. Numerous low-density liver lesions have developed since the prior study. Consider liver abscesses versus liver metastatic disease. 4. There is a small abscess anterior to the left lobe of the liver. 5. Markedly abnormal appearance of the pancreas. There is a fluid collection in the expected location of the tail which may represent a pseudocyst. The body of the pancreas is low-density. 6. Extensive inflammation involving the distal body and antrum of the stomach. Consider inflammation related to an extrinsic process versus primary gastric inflammation versus malignancy. 7. Abdominal ascites. Comment: Findings were discussed with Dr. Tamez at the time of study dictation. Dictated by: Glen Rick M.D. on 08/20/2020 at 14:31 Approved by: Glen Rick M.D. on 08/20/2020 at 14:58
[2020-08-20] MEDS: CEFTRIAXONE 1 GM/50 ML FROZ.PIGGY IV (13:57)
[2020-08-20 14:02] LABS: Neutrophils Absolute Manual 18040 /uL (3000-5900); Total Cells Counted 100
[2020-08-20 14:07] LABS: Anisocytosis 1+; Hypochromasia 2+
[2020-08-20 14:08] LABS: Poikilocytosis 1+
[2020-08-20 14:17] LABS: Procalcitonin 0.24 ng/mL (<0.5)
[2020-08-20] MEDS: VANCOMYCIN 1,000 MG/200 ML PIGGYBACK 200 MG IV (15:05)
[2020-08-20 15:53] LABS: Amylase 32 U/L (30-110)
[2020-08-20] MEDS: MORPHINE 4 MG/ML INJ IV (15:56)
--- NOTE | 2020-08-20 16:35 | PC.NURSE ---
Report given to EMERSON Negrete at [facility]
[2020-08-21 03:14] LABS: HBsAg Screen Negative (Negative); Hepatitis A Antibody IgM Negative (Negative); Hepatitis B Core Antibody IgM Negative (Negative); Hepatitis C Antibody <0.1 s/co ratio (0.0-0.9)
== END 2020-08-20 17:21 | disposition short-term general hospital (02) ==
PROVIDERS: Emergency Provider Emergency Medicine
DX: J86.9 Pyothorax without fistula (principal); K75.0 Abscess of liver; I31.3 Pericardial effusion (noninflammatory); E87.1 Hypo-osmolality and hyponatremia; D72.829 Elevated white blood cell count, unspecified; R05 Cough; R00.0 Tachycardia, unspecified; R06.00 Dyspnea, unspecified; Z20.822 Contact with and (suspected) exposure to COVID-19
CPT/HCPCS: 36415; 71045; 71260; 74177; 80053; 80074; 80320; 82150; 82550; 83605; 83690; 84145; 84484; 85007; 85025; 87040; 87635; 93005; 96365; 96367; 96375; 99284; 99285; C9803; J2270; Q9967

== ENCOUNTER → 2020-09-10 13:35 | Outpatient (ROUT) | payer OTHER, MEDICAID, SELFPAY ==
[2020-09-10 13:46] LABS: Add Manual Diff / Slide Review NO; Basophils Absolute Auto 200 /uL (0-100); Basophils Percent Auto 1.6 % (0-2); Eosinophils Absolute Auto 300 /uL (0-450); Eosinophils Percent Auto 2.7 % (2-4); Hematocrit 21.8 % (41-53); Hemoglobin 7.1 g/dL (13.5-17.5); Lymphocytes Absolute Auto 900 /uL (1100-4500); Mean Corpuscular HGB Conc 32.6 % (30-36); Mean Corpuscular Hemoglobin 28.1 PG (26-34); Mean Corpuscular Volume 86.4 fL (80-100); Monocytes Absolute Auto 1000 /uL (0-900); Monocytes Percent Auto 10.3 % (3-14); Neutrophils Absolute Auto 7600 /uL (1500-7000); Neutrophils Percent Auto 76.4 % (50-75); Platelet Count 413 X10^3/uL (150-400); Red Blood Cell Count 2.53 X10^6/uL (4.5-5.9); Red Cell Distribution Width 19.2 % (11.6-14.8); White Blood Cell Count 9.9 X10^3/uL (4.5-11.0)
[2020-09-10 13:54] LABS: Alanine Aminotransferase 32 IU/L (<50); Albumin 2.7 g/dL (3.5-5.0); Albumin Globulin Ratio 0.9 (1.0-2.8); Alkaline Phosphatase 131 U/L (38-126); Aspartate Aminotransferase 31 IU/L (17-59); BUN Creatinine Ratio 33.3 (6-22); Blood Urea Nitrogen 17 mg/dL (9-20); C-Reactive Protein Quant 2.1 mg/dL (<1.0); Calcium 8.4 mg/dL (8.4-10.2); Carbon Dioxide 28 mmol/L (22-32); Chloride 100 mmol/L (98-107); Estimated Glomerular Filt Rate > 60.0 mL/min (>60); Globulin 2.9 g/dL (1.7-4.1); Glucose 105 mg/dL (70-100); HEMOLYSIS < 15 (0-50); Potassium 4.5 mmol/L (3.4-5.1); Sodium 133 mmol/L (137-145); Total Protein 5.6 g/dL (6.3-8.2)
[2020-09-10 14:02] LABS: Bilirubin Total 0.1 mg/dL (0.2-1.3)
== END ==
DX: J86.9 Pyothorax without fistula (principal); K75.0 Abscess of liver
CPT/HCPCS: 80053; 85025; 86140

== ENCOUNTER 2020-09-29 13:48 | Emergency (ER) | payer OTHER, MEDICAID, SELFPAY ==
[2020-09-29] VITALS (12 sets, daily range): BP systolic 111–142; BP diastolic 55–73; PULSE 82–101; RESP 16–25; TEMP 36.9–37.3; O2SAT 98–100; BMI 16.9
[2020-09-29 14:26] LABS: Add Manual Diff / Slide Review NO; Basophils Absolute Auto 100 /uL (0-100); Basophils Percent Auto 1.3 % (0-2); Eosinophils Absolute Auto 100 /uL (0-450); Eosinophils Percent Auto 1.3 % (2-4); Lymphocytes Absolute Auto 1100 /uL (1100-4500); Lymphocytes Percent Auto 14.8 % (25-40); Mean Corpuscular HGB Conc 32.1 % (30-36); Mean Corpuscular Hemoglobin 27.8 PG (26-34); Mean Corpuscular Volume 86.4 fL (80-100); Monocytes Absolute Auto 600 /uL (0-900); Monocytes Percent Auto 7.9 % (3-14); Neutrophils Absolute Auto 5500 /uL (1500-7000); Neutrophils Percent Auto 74.7 % (50-75); Platelet Count 294 X10^3/uL (150-400); Red Blood Cell Count 1.84 X10^6/uL (4.5-5.9); Red Cell Distribution Width 18.1 % (11.6-14.8); White Blood Cell Count 7.3 X10^3/uL (4.5-11.0)
[2020-09-29 14:27] LABS: Hemoglobin 5.1 g/dL (13.5-17.5)
[2020-09-29 14:30] LABS: Hematocrit 15.9 % (41-53)
[2020-09-29 14:44] LABS: Alanine Aminotransferase 15 IU/L (<50); Albumin 2.9 g/dL (3.5-5.0); Alkaline Phosphatase 95 U/L (38-126); Aspartate Aminotransferase 23 IU/L (17-59); BUN Creatinine Ratio 56.9 (6-22); Blood Urea Nitrogen 33 mg/dL (9-20); Calcium 8.7 mg/dL (8.4-10.2); Carbon Dioxide 28 mmol/L (22-32); Chloride 103 mmol/L (98-107); Estimated Glomerular Filt Rate > 60.0 mL/min (>60); Globulin 2.8 g/dL (1.7-4.1); Glucose 142 mg/dL (70-100); HEMOLYSIS < 15 (0-50); Potassium 4.6 mmol/L (3.4-5.1); Sodium 136 mmol/L (137-145); Total Protein 5.7 g/dL (6.3-8.2)
[2020-09-29 14:51] LABS: Bilirubin Total < 0.1 mg/dL (0.2-1.3)
[2020-09-29 15:03] LABS: INR 1.1 (0.9-1.3); Prothrombin Time 12.4 SECONDS (10.1-12.7)
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
--- NOTE | 2020-09-29 15:09 | DI.RAD.S_ITS ---
PROCEDURE: XR CHEST 1V INDICATIONS: anemia TECHNIQUE: One view of the chest was acquired. COMPARISON: [facility], CT, CT CHEST ABDOMEN PELVIS WITH CONTRAST, 09/16/2020, 9:42. [facility], CR, XR CHEST 2 VIEWS, 08/31/2020, 10:14. [facility], CR, XR CHEST 1 VIEW, 08/30/2020, 23:21. [facility], CR, XR CHEST 1 VIEW, 08/30/2020, 5:18. [facility], CR, XR CHEST 1 VIEW, 08/29/2020, 5:05. [facility], CR, XR CHEST 1 VIEW, 08/28/2020, 19:18. [facility], CR, XR CHEST 1V, 08/20/2020, 13:25. FINDINGS: Surgical changes and devices: A right-sided PICC line is seen, with the tip overlying the inferior aspect of the superior vena cava, approximately 2-3 cm above the cavoatrial junction. Lungs and pleura: There is a trace left-sided pleural effusion. No pneumothorax is seen. Mediastinum: Mediastinal contours appear normal. Heart size is normal. Bones and chest wall: No suspicious bony lesions. Overlying soft tissues appear unremarkable. IMPRESSION: Small left-sided pleural effusion. The tip of the right-sided PICC line is seen overlying the inferior aspect of the superior vena cava. Dictated by: Daren Sahu M.D. on 09/29/2020 at 14:24 Approved by: Daren Sahu M.D. on 09/29/2020 at 14:25
[2020-09-29 15:27] LABS: PTT Partial Thromboplastin Tim 28 SECONDS (26.4-36.2)
[2020-09-29] MEDS: SODIUM CHLORIDE 0.9% 1,000 ML 100 ML IV (15:41)
[2020-09-29 16:16] LABS: COVID19 - ADMIT (NP swab/PCR) Negative (Negative)
--- NOTE | 2020-09-29 16:19 | DI.CT.S_ITS ---
PROCEDURE: CT ABDOMEN PELVIS W CON INDICATIONS: multiple abscess, gi bleed. TECHNIQUE: After the administration of intravenous contrast, 5 mm thick sections acquired from the diaphragm to the symphysis. 5 mm coronal and sagittal reformats were acquired. For radiation dose reduction, the following was used: automated exposure control, adjustment of mA and/or kV according to patient size. COMPARISON: [facility], CT, CT CHEST ABDOMEN PELVIS WITH CONTRAST, 09/16/2020, 9:42. [facility], CT, CT CHEST ABDOMEN PELVIS WITH CONTRAST, 09/02/2020, 11:08. [facility], CT, CT CHEST ABDOMEN PELVIS WITH CONTRAST, 08/27/2020, 11:29. [facility], CT, CT CHEST ABD PEL W CON, 08/20/2020, 13:47. [facility], CT, CT ABDOMEN PELVIS W CON, 05/22/2018, 13:18. FINDINGS: Image quality: Excellent. ABDOMEN: Lung bases: There is a small left-sided pleural effusion. Bubbles of left pleural gas can be seen. Heart size is normal. Solid organs: Liver is normal in size. Low-density lesions are again seen within the liver. Gallbladder demonstrates a thickened wall, which is nonspecific in this patient with ascites.. Biliary system is non dilated. The pancreas is poorly seen, which is attributed to pancreatic necrosis. At the tail of pancreas, there is an apparent pseudocyst seen that measures 3.7 cm, as on series 2, image 30. Spleen is normal in size. The spleen enhances poorly and heterogeneously. No adrenal nodules. Kidneys demonstrate normal size and enhancement, without hydronephrosis. A nonenhancing water density cyst is seen at the inferior pole of the right kidney measuring 2.5 cm. Peritoneum and bowel: Generalized wall thickening can be seen of the small bowel, with mild hyperenhancement. Generalized wall thickening can also be seen of the colon. No free air. Dbbj-fb-dklelgvl ascites can be seen. Nodes and vessels: No retroperitoneal or mesenteric adenopathy by size criteria. Aorta and inferior vena cava are normal in size. 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 Portions of the superior mesenteric vein are also not well seen and are attributed to thrombosis. Collateral circulation can be seen within the mid abdomen. Miscellaneous: No ventral hernias. PELVIS: Genitourinary: Bladder wall thickness is normal. Miscellaneous: No inguinal hernias or adenopathy. Bones: No suspicious bony lesions. No vertebral body compression fractures. Focal L5-S1 degenerative change is seen. IMPRESSION: Continued findings of necrotizing pancreatitis, with a pancreatic pseudocyst at the tail of the pancreas. There is a small left-sided pleural effusion, with bubbles of gas seen. The appearance is overall improved compared to the 09/16/2020 examination and is attributed to improving empyema. The wvri-cv-tetoceve ascites is seen, which appears decreased in volume compared to 09/16/2020. 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 Generalized wall thickening can be seen of the colon and the small bowel. This may be related to infectious or inflammatory change or may be related to venous congestion, given the mesenteric thrombosis. Low-density lesions are again seen within the liver, which are likely related to multifocal abscess. Dictated by: Daren Sahu M.D. on 09/29/2020 at 16:23 Approved by: Daren Sahu M.D. on 09/29/2020 at 16:31
[2020-09-29 16:20] LABS: Creatine Kinase 26 U/L (55-170); Lipase 416 U/L (23-300)
[2020-09-29 16:42] LABS: Troponin I < 0.012 ng/mL (0.01-0.034)
[2020-09-29] MEDS: ONDANSETRON 4 MG/2 ML INJ IV (16:48)
[2020-09-29] MEDS: PANTOPRAZOLE 40 MG VIAL 80 MG IV (16:48)
[2020-09-29] MEDS: PANTOPRAZOLE 80 MG in SODIUM CHLORIDE 0.9% 100 ML 10 ML IV (17:19)
--- NOTE | 2020-09-29 17:30 | PC.NURSE ---
Pt had episode of emesis, dark red colored. notified.
[2020-09-29] MEDS: diphenhydrAMINE 50 MG/ML VIAL 25 MG IV (17:34)
[2020-09-29] MEDS: GABAPENTIN 100 MG CAPSULE 200 MG PO (18:43)
== END 2020-09-29 21:14 | disposition short-term general hospital (02) ==
PROVIDERS: Emergency Provider Emergency Medicine
DX: K92.2 Gastrointestinal hemorrhage, unspecified (principal); J86.9 Pyothorax without fistula; K85.91 Acute pancreatitis with uninfected necrosis, unspecified
CPT/HCPCS: 36415; 36430; 71045; 74177; 80053; 82272; 82550; 83690; 84484; 85025; 85610; 85730; 86850; 86900; 86901; 87635; 93005; 96361; 96365; 96366; 96375; 96376; 99285; C9803; P9016; C9113; J1200; J2405; Q9967

== ENCOUNTER → 2020-10-08 11:40 | Outpatient (ROUT) | payer OTHER, MEDICAID, SELFPAY ==
[2020-10-08 11:49] LABS: Add Manual Diff / Slide Review NO; Basophils Absolute Auto 100 /uL (0-100); Basophils Percent Auto 1.2 % (0-2); Eosinophils Absolute Auto 200 /uL (0-450); Hematocrit 26.7 % (41-53); Hemoglobin 8.8 g/dL (13.5-17.5); Lymphocytes Absolute Auto 900 /uL (1100-4500); Lymphocytes Percent Auto 14.1 % (25-40); Mean Corpuscular HGB Conc 32.9 % (30-36); Mean Corpuscular Hemoglobin 29.4 PG (26-34); Mean Corpuscular Volume 89.2 fL (80-100); Monocytes Absolute Auto 500 /uL (0-900); Neutrophils Absolute Auto 4400 /uL (1500-7000); Neutrophils Percent Auto 72.7 % (50-75); Platelet Count 268 X10^3/uL (150-400); Red Blood Cell Count 2.99 X10^6/uL (4.5-5.9); Red Cell Distribution Width 16.1 % (11.6-14.8)
[2020-10-08 12:04] LABS: Alanine Aminotransferase 15 IU/L (<50); Alkaline Phosphatase 98 U/L (38-126); Aspartate Aminotransferase 22 IU/L (17-59); BUN Creatinine Ratio 20.8 (6-22); Blood Urea Nitrogen 11 mg/dL (9-20); C-Reactive Protein Quant 0.5 mg/dL (<1.0); Calcium 8.9 mg/dL (8.4-10.2); Carbon Dioxide 27 mmol/L (22-32); Chloride 104 mmol/L (98-107); Estimated Glomerular Filt Rate > 60.0 mL/min (>60); Globulin 2.9 g/dL (1.7-4.1); Glucose 118 mg/dL (70-100); HEMOLYSIS < 15 (0-50); Potassium 4.5 mmol/L (3.4-5.1); Sodium 136 mmol/L (137-145); Total Protein 5.9 g/dL (6.3-8.2)
[2020-10-08 12:07] LABS: Bilirubin Total < 0.1 mg/dL (0.2-1.3)
== END ==
DX: J86.9 Pyothorax without fistula (principal); K75.0 Abscess of liver
CPT/HCPCS: 80053; 85025; 86140

== ENCOUNTER → 2020-10-19 16:35 | Outpatient (ROUT) | payer OTHER, MEDICAID, SELFPAY ==
[2020-10-19 16:47] LABS: Add Manual Diff / Slide Review NO; Basophils Absolute Auto 200 /uL (0-100); Basophils Percent Auto 3.2 % (0-2); Eosinophils Absolute Auto 100 /uL (0-450); Eosinophils Percent Auto 2.3 % (2-4); Hematocrit 26.9 % (41-53); Hemoglobin 8.9 g/dL (13.5-17.5); Lymphocytes Absolute Auto 600 /uL (1100-4500); Lymphocytes Percent Auto 9.4 % (25-40); Mean Corpuscular HGB Conc 33.1 % (30-36); Mean Corpuscular Hemoglobin 29.3 PG (26-34); Mean Corpuscular Volume 88.5 fL (80-100); Monocytes Absolute Auto 500 /uL (0-900); Monocytes Percent Auto 7.7 % (3-14); Neutrophils Absolute Auto 4600 /uL (1500-7000); Neutrophils Percent Auto 77.4 % (50-75); Platelet Count 244 X10^3/uL (150-400); Red Blood Cell Count 3.04 X10^6/uL (4.5-5.9); Red Cell Distribution Width 16.4 % (11.6-14.8)
[2020-10-19 16:51] LABS: Alanine Aminotransferase 39 IU/L (<50); Albumin 3.6 g/dL (3.5-5.0); Albumin Globulin Ratio 1.2 (1.0-2.8); Alkaline Phosphatase 113 U/L (38-126); Aspartate Aminotransferase 30 IU/L (17-59); BUN Creatinine Ratio 20.8 (6-22); Bilirubin Total 0.1 mg/dL (0.2-1.3); Blood Urea Nitrogen 11 mg/dL (9-20); C-Reactive Protein Quant < 0.5 mg/dL (<1.0); Calcium 9.7 mg/dL (8.4-10.2); Carbon Dioxide 27 mmol/L (22-32); Chloride 98 mmol/L (98-107); Estimated Glomerular Filt Rate > 60.0 mL/min (>60); Glucose 146 mg/dL (70-100); HEMOLYSIS < 15 (0-50); Potassium 4.6 mmol/L (3.4-5.1); Sodium 132 mmol/L (137-145); Total Protein 6.6 g/dL (6.3-8.2)
[2020-10-19 16:58] LABS: Erythrocyte Sedimentation Rate 32 MM/HR (0-15)
== END ==
DX: J86.9 Pyothorax without fistula (principal); K75.0 Abscess of liver
CPT/HCPCS: 80053; 85025; 85651; 86140

== ENCOUNTER 2020-12-05 17:50 | Emergency (ER) | payer OTHER, MEDICAID, SELFPAY ==
[2020-12-05] VITALS (16 sets, daily range): BP systolic 142–193; BP diastolic 81–96; PULSE 63–94; RESP 14–50; TEMP 36.5; O2SAT 91–100; BMI 16.7
--- NOTE | 2020-12-05 17:54 | DI.RAD.S_ITS ---
PROCEDURE: XR ABDOMEN MIN 2V INDICATIONS: severe abdominal pain TECHNIQUE: 2 views of the abdomen were acquired. COMPARISON: [facility], CT, CT CHEST ABDOMEN PELVIS WITH CONTRAST, 10/02/2020, 12:12. [facility], CT, CT ABDOMEN PELVIS W CON, 09/29/2020, 16:35. [facility], CT, CT ANGIO ABDOMEN PELVIS, 10/24/2020, 16:12. FINDINGS: Surgical changes and devices: None. Bowel: No pneumoperitoneum. There is moderate colonic gas and paucity of small bowel gas. Soft tissues: No masses; visualized solid organ contours appear normal in size. No suspicious abdominal calcifications. Bones: No suspicious bony abnormalities. IMPRESSION: Nonspecific bowel gas pattern. Dictated by: Noris Barraza M.D. on 12/05/2020 at 18:32 Approved by: Noris Barraza M.D. on 12/05/2020 at 18:35
[2020-12-05] MEDS: ONDANSETRON 4 MG/2 ML INJ IV ×3 (18:01→22:00)
[2020-12-05] MEDS: HYDROMORPHONE 0.5 MG INJ IV ×3 (18:05→21:59)
[2020-12-05] MEDS: LACTATED RINGERS 1,000 ML 1000 ML IV (18:10)
[2020-12-05 18:14] LABS: Add Manual Diff / Slide Review NO; Basophils Absolute Auto 100 /uL (0-100); Basophils Percent Auto 0.9 % (0-2); Eosinophils Absolute Auto 100 /uL (0-450); Eosinophils Percent Auto 1.9 % (2-4); Hematocrit 33.9 % (41-53); Hemoglobin 11.2 g/dL (13.5-17.5); Lymphocytes Absolute Auto 700 /uL (1100-4500); Lymphocytes Percent Auto 11.4 % (25-40); Mean Corpuscular HGB Conc 33.2 % (30-36); Mean Corpuscular Hemoglobin 28.2 PG (26-34); Monocytes Absolute Auto 500 /uL (0-900); Monocytes Percent Auto 8.9 % (3-14); Neutrophils Absolute Auto 4700 /uL (1500-7000); Neutrophils Percent Auto 76.9 % (50-75); Platelet Count 305 X10^3/uL (150-400); Red Blood Cell Count 3.99 X10^6/uL (4.5-5.9); Red Cell Distribution Width 15.8 % (11.6-14.8); White Blood Cell Count 6.1 X10^3/uL (4.5-11.0)
[2020-12-05 18:25] LABS: Alanine Aminotransferase 357 IU/L (<50); Albumin 4.5 g/dL (3.5-5.0); Albumin Globulin Ratio 1.2 (1.0-2.8); Alkaline Phosphatase 1206 U/L (38-126); Aspartate Aminotransferase 227 IU/L (17-59); BUN Creatinine Ratio 22.2 (6-22); Bilirubin Total 2.8 mg/dL (0.2-1.3); Blood Urea Nitrogen 12 mg/dL (9-20); Calcium 10.8 mg/dL (8.4-10.2); Carbon Dioxide 30 mmol/L (22-32); Chloride 93 mmol/L (98-107); Estimated Glomerular Filt Rate > 60.0 mL/min (>60); Globulin 3.9 g/dL (1.7-4.1); Glucose 151 mg/dL (70-100); HEMOLYSIS 27 (0-50); Lipase 544 U/L (23-300); Magnesium 1.6 mg/dL (1.6-2.3); Potassium 3.5 mmol/L (3.4-5.1); Sodium 137 mmol/L (137-145); Total Protein 8.4 g/dL (6.3-8.2)
--- NOTE | 2020-12-05 18:45 | ED_ITS ---
HPI - General Adult General Chief complaint: Abdominal Pain Stated complaint: abdominal pain Time Seen by Provider: 12/05/20 17:56 Source: patient Mode of arrival: EMS Limitations: no limitations History of Present Illness HPI narrative: Patient is a 60-year-old male who was brought in by EMS for evaluation of generalized abdominal pain. Patient has been seen multiple times over the past several months here at this facility for various issues the most recent time was September where he was subsequently transferred to [facility] with diagnosis of a GI bleed. Patient states that during that visit there was an issue with an endoscopy and he was subsequently transferred to [facility]. He was there for a period of time. During that visit there was a biopsy of his liver which did show hepatocellular carcinoma. There was also reports that it potentially was a pancreatic primary. This information was provided by the discharge paperwork that the patient has with him. He is not currently seeing Oncology. Not currently undergoing any treatment but he states that this is ?in the works ?he states that his abdominal pain today is the same pain that he has had in the past but it is worsened and is now all over his abdomen. No fevers. Some nausea. No urinary symptoms. No change in bowel habits. Has not tried anything for symptoms prior to arrival. Related Data Home Medications Medication Instructions Recorded Confirmed No Known Home Medications 05/22/18 05/22/18 Allergies Allergy/AdvReac Type Severity Reaction Status Date / Time No Known Drug Allergies Allergy Verified 12/05/20 17:58 Review of Systems Constitutional Constitutional: Denies fever(s) Cardiovascular Cardiovascular: Denies chest pain and Denies dyspnea Respiratory Respiratory: Denies dyspnea Gastrointestinal Gastrointestinal: Reports abdominal pain, Denies change in bowel habits and Reports nausea Genitourinary Genitourinary: Denies dysuria Genitourinary: Denies dysuria Musculoskeletal Musculoskeletal: Reports system reviewed and no additional complaints, except as documented Integumentary/Breasts Skin/Breast: Reports system reviewed and no additional complaints, except as documented Neurologic Neurologic: Reports system reviewed and no additional complaints, except as documented Hematologic/Lymphatic On Anticoagulants: No Allergic/Immunologic Allergic/Immunologic: Reports system reviewed and no additional complaints, except as documented Patient History Medical History Back pain Lung abscess Pancreatitis Social History (Reviewed 12/06/20 @ 01:54 by JOANNE Batista Smoking Status: Unknown if ever smoked substance use type: does not use Smoking Status: Unknown if ever smoked alcohol intake frequency: holidays/special occasions only Substance Use Type: does not use Exam Initial Vital Signs Initial Vital Signs: Vital Signs Temperature 97.7 F 12/05/20 17:55 Pulse Rate 94 H 12/05/20 17:55 Respiratory Rate 14 12/05/20 17:55 Blood Pressure 142/90 H 12/05/20 17:55 Pulse Oximetry 100 12/05/20 17:55 Const General: cooperative Nutritional Appearance: cachectic Limitations: mental status not altered [facility] Head: normal to inspection and normocephalic Chest Chest: normal inspection of the chest Resp Effort & Inspection: normal respiratory effort Auscultation: clear to auscultation bilaterally Cardio Rate: regular rate Rhythm: regular rhythm GI Palpation: soft and mass (Left-sided abdomen) Back/Spine/Pelvis Back: No CVA tenderness Skin Lesions: no lesions Rashes: no rashes Neuro General: patient alert, patient awake and patient oriented x3 Cognition: normal cognition Speech: speech normal Extrem General: normal to inspection, capillary refill normal and No edema Psych Appearance: grossly normal and well kempt Scores GCS [place] coma scale eye opening: Spontaneous [place] coma scale verbal response: Orientated Ray coma scale motor response: Obey commands Ray coma scale total score: 15 Course Orders Ordered: ED Orders 12/05/20 22:20 COVID19 -Nasal swab/Pre-Proc Stat 12/05/20 22:42 CT abdomen pelvis w con Stat 12/05/20 23:06 Partial Thromboplastin Time Stat Prothrombin Time INR Stat 12/06/20 04:34 XR chest 1V Stat Sodium Chloride (Normal Saline 0.9%) 1,000 mls @ 125 mls/hr IV CONT COMFORT Last Admin: 12/06/20 01:36 Dose: 125 mls/hr Documented by: KGALLAG Ondansetron HCl (Ondansetron 4 Mg/2 Ml Inj) 4 mg IV Q4HR PRN PRN Reason: Nausea And Vomiting Last Admin: 12/05/20 18:01 Dose: 4 mg Documented by: KBRYERS Discontinued Medications Hydromorphone HCl (Hydromorphone 0.5 Mg Inj) 0.5 mg IV NOW ONE Stop: 12/05/20 17:55 Last Admin: 12/05/20 18:05 Dose: 0.5 mg Documented by: JOSE Hydromorphone HCl (Hydromorphone 0.5 Mg Inj) 0.5 mg IV NOW ONE Stop: 12/05/20 18:48 Last Admin: 12/05/20 18:57 Dose: 0.5 mg Documented by: JOSE Hydromorphone HCl (Hydromorphone 0.5 Mg Inj) 0.5 mg IV NOW ONE Stop: 12/05/20 21:47 Last Admin: 12/05/20 21:59 Dose: 0.5 mg Documented by: DORCAS Hydromorphone HCl (Hydromorphone 0.5 Mg Inj) 0.5 mg IV NOW ONE Stop: 12/06/20 01:28 Last Admin: 12/06/20 01:36 Dose: 0.5 mg Documented by: ROXANNE Hydromorphone HCl (Hydromorphone 0.5 Mg Inj) 0.5 mg IV NOW ONE Stop: 12/06/20 04:02 Last Admin: 12/06/20 04:06 Dose: 0.5 mg Documented by: ROXANNE Lactated Ringer's (Lactated Ringers) 1,000 mls @ 1,000 mls/hr IV BOLUS ONE Stop: 12/05/20 18:53 Last Infusion: 12/05/20 19:11 Dose: 0 mls/hr Documented by: Admin: 12/05/20 18:10 Dose: 1,000 mls/hr Documented by: JOSE Piperacillin Sod/Tazobactam (Sod 4.5 gm/ Sodium Chloride) 100 mls @ 200 mls/hr IV NOW ONE Stop: 12/05/20 21:47 Last Infusion: 12/05/20 22:48 Dose: 0 mls/hr Documented by: Admin: 12/05/20 21:59 Dose: 200 mls/hr Documented by: DORCAS Lidocaine HCl (Lidocaine 2% (Glydo) 6 Ml Gel) 6 ml TOP NOW ONE Stop: 12/06/20 04:09 Last Admin: 12/06/20 04:11 Dose: 6 ml Documented by: ROXANNE Metoclopramide HCl (Metoclopramide 10 Mg/2 Ml Inj) 10 mg IV NOW ONE Stop: 12/05/20 23:15 Last Admin: 12/05/20 23:24 Dose: 10 mg Documented by: DORCAS Ondansetron HCl (Ondansetron 4 Mg/2 Ml Inj) 4 mg IV NOW ONE Stop: 12/05/20 18:53 Last Admin: 12/05/20 18:57 Dose: 4 mg Documented by: JOSE Ondansetron HCl (Ondansetron 4 Mg/2 Ml Inj) 4 mg IV NOW ONE Stop: 12/05/20 21:47 Last Admin: 12/05/20 22:00 Dose: 4 mg Documented by: DORCAS Ondansetron HCl (Ondansetron 4 Mg/2 Ml Inj) 4 mg IV NOW ONE Stop: 12/06/20 01:28 Last Admin: 12/06/20 01:36 Dose: 4 mg Documented by: ROXANNE Vital Signs Vital signs: Vital Signs - 8 hr 12/05/20 23:00 12/05/20 23:30 12/06/20 00:00 Pulse Rate 72 64 64 Respiratory Rate 21 44 H 39 H Blood Pressure Pulse Oximetry 97 97 97 12/06/20 00:30 12/06/20 01:00 12/06/20 01:30 Pulse Rate 69 81 90 Respiratory Rate 44 H 24 34 H Blood Pressure Pulse Oximetry 98 98 97 12/06/20 02:00 12/06/20 02:30 12/06/20 03:00 Pulse Rate 71 65 66 Respiratory Rate 42 H 45 H 55 H Blood Pressure Pulse Oximetry 100 96 96 12/06/20 03:30 12/06/20 04:00 12/06/20 04:30 Pulse Rate 72 87 79 Respiratory Rate 48 H 33 H 16 Blood Pressure Pulse Oximetry 96 96 92 12/06/20 04:32 12/06/20 05:00 12/06/20 05:30 Pulse Rate 79 66 67 Respiratory Rate 35 H 16 22 Blood Pressure 157/96 H 142/88 H Pulse Oximetry 92 92 94 12/06/20 05:31 12/06/20 06:00 12/06/20 06:02 Pulse Rate 66 67 72 Respiratory Rate 13 17 19 Blood Pressure 151/81 H 172/88 H Pulse Oximetry 94 96 96 Medical Decision Making Medical Records Medical records reviewed: Yes I reviewed the patient's medical records. Lab Data Lab results reviewed: Yes I reviewed the patient's lab results. Result diagrams: 12/05/20 18:01 12/05/20 18:01 Labs: Lab Results 12/05/20 12/05/20 12/05/20 Range/Units 18:01 18:01 22:20 WBC 6.1 (4.5-11.0) X10^3/uL RBC 3.99 L (4.5-5.9) X10^6/uL Hgb 11.2 L (13.5-17.5) g/dL Hct 33.9 L (41-53) % MCV 85.0 (80-100) fL MCH 28.2 (26-34) PG MCHC 33.2 (30-36) % RDW 15.8 H (11.6-14.8) % Plt Count 305 (150-400) X10^3/uL Neut % (Auto) 76.9 H (50-75) % Lymph % (Auto) 11.4 L (25-40) % Mckinley % (Auto) 8.9 (3-14) % Eos % (Auto) 1.9 L (2-4) % Baso % (Auto) 0.9 (0-2) % Neut # (Auto) 4700 (7728-8659) /uL Lymph # (Auto) 700 L (1756-2165) /uL Mckinley # (Auto) 500 (0-900) /uL Eos # (Auto) 100 (0-450) /uL Baso # (Auto) 100 (0-100) /uL PT (10.1-12.7) SECONDS INR (0.9-1.3) APTT (26.4-36.2) SECONDS Sodium 137 (137-145) mmol/L Potassium 3.5 (3.4-5.1) mmol/L Chloride 93 L (98-107) mmol/L Carbon Dioxide 30 (22-32) mmol/L BUN 12 (9-20) mg/dL Creatinine 0.54 L (0.66-1.25) mg/dL Estimated GFR > 60.0 (>60) mL/min BUN/Creatinine Ratio 22.2 H (6-22) Glucose 151 H (70-100) mg/dL Calcium 10.8 H (8.4-10.2) mg/dL Magnesium 1.6 (1.6-2.3) mg/dL Total Bilirubin 2.8 H (0.2-1.3) mg/dL AST 227 H (17-59) IU/L ALT 357 H (<50) IU/L Alkaline Phosphatase 1206 H (38-126) U/L Total Protein 8.4 H (6.3-8.2) g/dL Albumin 4.5 (3.5-5.0) g/dL Globulin 3.9 (1.7-4.1) g/dL Albumin/Globulin Ratio 1.2 (1.0-2.8) Lipase 544 H (23-300) U/L SARS-CoV-2 (PCR) Negative (Negative) 12/05/20 12/05/20 Range/Units 23:06 23:06 WBC (4.5-11.0) X10^3/uL RBC (4.5-5.9) X10^6/uL Hgb (13.5-17.5) g/dL Hct (41-53) % MCV (80-100) fL MCH (26-34) PG MCHC (30-36) % RDW (11.6-14.8) % Plt Count (150-400) X10^3/uL Neut % (Auto) (50-75) % Lymph % (Auto) (25-40) % Mckinley % (Auto) (3-14) % Eos % (Auto) (2-4) % Baso % (Auto) (0-2) % Neut # (Auto) (0268-4164) /uL Lymph # (Auto) (5311-7591) /uL Mckinley # (Auto) (0-900) /uL Eos # (Auto) (0-450) /uL Baso # (Auto) (0-100) /uL PT 12.2 (10.1-12.7) SECONDS INR 1.1 (0.9-1.3) APTT 32 (26.4-36.2) SECONDS Sodium (137-145) mmol/L Potassium (3.4-5.1) mmol/L Chloride (98-107) mmol/L Carbon Dioxide (22-32) mmol/L BUN (9-20) mg/dL Creatinine (0.66-1.25) mg/dL Estimated GFR (>60) mL/min BUN/Creatinine Ratio (6-22) Glucose (70-100) mg/dL Calcium (8.4-10.2) mg/dL Magnesium (1.6-2.3) mg/dL Total Bilirubin (0.2-1.3) mg/dL AST (17-59) IU/L ALT (<50) IU/L Alkaline Phosphatase (38-126) U/L Total Protein (6.3-8.2) g/dL Albumin (3.5-5.0) g/dL Globulin (1.7-4.1) g/dL Albumin/Globulin Ratio (1.0-2.8) Lipase (23-300) U/L SARS-CoV-2 (PCR) (Negative) Urine Dip Bedside Urine Glucose Negative Bedside Urine Bilirubin - Negative Bedside Urine Ketone +/- 5 Urine Specific Colby 1.015 Bedside Urine Occult Blood - Negative Bedside Urine pH 7.0 Bedside Urine Protein +/- 15 Bedside Urine Urobilinogen - Negative Bedside Urine Nitrite - Negative Bedside Urine Leukocytes - Negative Esterase Point of care testing: Urine Dip Bedside Urine Glucose Negative Bedside Urine Bilirubin - Negative Bedside Urine Ketone +/- 5 Urine Specific Colby 1.015 Bedside Urine Occult Blood - Negative Bedside Urine pH 7.0 Bedside Urine Protein +/- 15 Bedside Urine Urobilinogen - Negative Bedside Urine Nitrite - Negative Bedside Urine Leukocytes - Negative Esterase Imaging Data Abdominal x-ray: Radiologist's Impression: [address] [id number] ReportSigned Patient: Zion Winter QMR#: [id number]: 1960Acct:[id number]/Sex: 60 / MDate of Service: 12/05/20Loc: EDAccession Number: [id number] Procedure: XR abdomen min 2V Ordering Provider: Jorge Huertas D.O. PROCEDURE: XR ABDOMEN MIN 2V INDICATIONS: severe abdominal pain TECHNIQUE: 2 views of the abdomen were acquired. COMPARISON: [facility], CT, CT CHEST ABDOMEN PELVIS WITH CONTRAST, 10/02/2020, 12:12. [facility], CT, CT ABDOMEN PELVIS W CON, 09/29/2020, 16:35. [facility], CT, CT ANGIO ABDOMEN PELVIS, 10/24/2020, 16:12. FINDINGS: Surgical changes and devices: None. Bowel: No pneumoperitoneum. There is moderate colonic gas and paucity of small bowel gas. Soft tissues: No masses; visualized solid organ contours appear normal in size. No suspicious abdominal calcifications. Bones: No suspicious bony abnormalities. IMPRESSION: Nonspecific bowel gas pattern. Dictated by: Noris Barraza M.D. on 12/05/2020 at 18:32 Approved by: Noris Barraza M.D. on 12/05/2020 at 18:35 US - abdomen: Radiologist's Impression: [address] [id number] ReportSigned Patient: Zion Winter QMR#: [id number]: 1960Acct:[id number]/Sex: 60 / MDate of Service: 12/05/20Loc: EDAccession Number: [id number] Procedure: US abdomen complete Ordering Provider: Jean Carlos Tamez D.O. PROCEDURE: US ABDOMEN COMPLETE INDICATIONS: hx of pancreatic cancer now with worsening pain TECHNIQUE: Real-time scanning was performed of the abdominal and retroperitoneal organs, with image documentation. COMPARISON: [facility], US, US ABDOMEN LIMITED, 08/27/2020, 18:17. [facility], MR, MR ABDOMEN LIVER PROTOCOL, 08/24/2020, 8:22. [facility], CT, CT CHEST ABDOMEN PELVIS WITH CONTRAST, 10/02/2020, 12:12. [facility], CT, CT ANGIO ABDOMEN PELVIS, 10/24/2020, 16:12. FINDINGS: Liver: Liver is normal in size and homogeneous in echotexture. Previously seen liver lesions are not well seen on the current exam. Main portal vein demonstrates h epatopetal flow. Gallbladder: There are gallstones. There is gallbladder wall thickening measuring 6.4 mm. There are nonmobile gallstones or masses in the gallbladder. No pericholecystic fluid or sonographic Galloway's sign. Biliary ducts: Intrahepatic bile ducts are non-dilated. Extrahepatic bile duct caliber measures 17.4 mm. Normal is 6-7 mm or less in diameter, or 10 mm or less post-cholecystectomy. Pancreas: Not well seen secondary to overlying bowel gas. Spleen: Spleen is normal in size and homogeneous in echotexture. Possible splenic varices. Kidneys: Kidneys are normal in size and echotexture. Right kidney measures 11.4 cm long; left kidney measures 10.8 cm long. No hydronephrosis or nephrolithiasis. No solid masses. There is a 2.8 cm simple cyst in mid right kidney. Aorta: Visualized aorta is normal in caliber at less than 3 cm. Iliacs: Proximal common iliac arteries are normal in caliber at less than 2.5 cm. IVC: Intrahepatic inferior vena cava is patent. Miscellaneous: Dilated fluid-filled bowel loops are noted. There is a trace amount of ascites. IMPRESSION: 1. Previously seen liver lesions are not well seen on the current exam. 2. Nonmobile gallstones or masses in gallbladder. There is gallbladder wall thickening suspicious for acute cholecystitis. 3. Prominent fluid filled dilated bowel loops are noted. 4. Dilated common bile duct measuring up to 17.4 mm. Please correlate with serum bilirubin for biliary obstruction. If clinically indicated, MRCP may be helpful for follow-up evaluation. 5. Small amount of ascites. 6. Pancreas not well seen due to overlying bowel gas. Dictated by: Noris Barraza M.D. on 12/05/2020 at 21:02 Approved by: Noris Barraza M.D. on 12/05/2020 at 21:21 CT scan - abdomen/pelvis: Radiologist's Impression: Slightly worsened liver lesions Bile duct dilation worsened Mild thickening and distention of gallbladder Increase 3.6 cm left adrenal mass Pancreatic nodularity and dilation of distal duct unchanged, with increased size of inferior pseudocyst Distended fluid-filled stomach and duodenum not seen previously may be inflammatory versus mechanical obstruction Moderate ascites as previous MDM Narrative Medical decision making narrative: Patient's labs today do show a new increase in his bilirubin and LFTs and alk-phos. He has a unremarkable hemoglobin and hematocrit and platelets. His kidney functions unremarkable. Right upper quadrant ultrasound shows gallstones verses masses in his gallbladder. There was some concern about acute cholecystitis because of this. He was given Zosyn because of this. He has never been hypotensive. I did discuss the case with General surgery at this facility who stated given his other issues with his liver and pancreas that he should be transferred to facility that has GI/ERCP capability. I discussed the case with General surgery at [facility] who stated that they would be happy to consult on the patient if he were to be transferred there. Then discussed the case with Gastroenterology and [facility] who stated based on the description that he was given and the lab reports and ultrasound he did not feel that the patient specifically needed an ERCP. He recommended obtaining a CT scan of the abdomen for further evaluation and also felt that the patient would be better off at a facility that had even subspecialty availability such as hepatology. This was done and it does show a worsening liver lesions and also worsening dilation of the bile ducts. I did discuss the case with Dr. Galeana with Internal Medicine at [facility] who accepts the patient in transfer. I did discuss all the findings with the patient and the need for transfer and he expressed understanding and agreement. Patient is stable for transport. While waiting for transport to [facility] the patient continued to have nausea and discomfort. The medications he was receiving did seem to help his symptoms quite a bit however since they were continuing and because there was findings on the CT scan of a distended fluid-filled stomach I did discuss placement of an NG tube with the patient. He agreed to this. It was placed without incident with a return of almost 2 L of stomach content. Patient states that he felt much better afterwards. His nausea completely resolved and his pain improved as well. X-ray shows placement of the NG tube terminating within the stomach. Discharge Plan Departure Patient Disposition: [facility] Clinical Impression: Cholelithiasis, Hyperbilirubinemia, Transaminitis, Pancreatic pseudocyst Prescriptions: No Action No Known Home Medications RF: 0
[2020-12-05] MEDS: PIPERACILLIN/TAZO 4.5 GM in SODIUM CHLORIDE 0.9% 100 ML 200 ML IV (21:59)
[2020-12-05 22:37] LABS: COVID19 -Nasal RAPID Negative (Negative)
--- NOTE | 2020-12-05 22:42 | DI.CT.S_ITS ---
PROCEDURE: CT ABDOMEN PELVIS W CON INDICATIONS: ABD pain, hx of GB pathology, and pancreatitis TECHNIQUE: After the administration of intravenous contrast, axial sections acquired from the lung bases to the pubic symphysis. Coronal and sagittal reformats were performed. For radiation dose reduction, the following was used: automated exposure control, adjustment of mA and/or kV according to patient size. COMPARISON: [facility], CT, CT ABDOMEN PELVIS W CON, 09/29/2020, 16:35. FINDINGS: Image quality: Excellent. Lung bases: Within the left lower lobe laterally, there is a small amount of pleural thickening with likely scarring, which is clearly improved compared to 09/29/2020. Heart: No significant findings. ABDOMEN: Liver: Several low-density foci can be seen within the liver, which are nonspecific, yet overall slightly more prominent than on the 09/29/2020 examination. Areas of patchy increased enhancement can be seen within the inferior right liver. Gallbladder: Unremarkable. Biliary ducts: The common bile duct is dilated at 18 mm. Pancreas: Inflammatory changes can be seen surrounding the pancreas. Pancreatic pseudocysts are seen, with the largest seen inferiorly measuring up to 3.7 cm. There is prominent dilatation of the pancreatic duct seen at the pancreatic tail. Spleen: Unremarkable. Adrenal Glands: The left adrenal gland is irregular, with internal cyst formation. This has worsened compared to the prior examination. The right adrenal gland is unremarkable. Kidneys and Ureters: At the inferior pole of the right kidney posteriorly, there is a simple cyst seen measuring 2.9 cm. Potential lobulation can be seen involving the left kidney. No hydronephrosis. Stomach and Bowel: The stomach and the duodenum demonstrate prominent fluid and distention. Focal hyperenhancement and wall thickening can be seen involving the distal 4th portion of the duodenum, as on series 4 images 26 through 28. The more distal small bowel is within normal limits. A moderate amount of stool is seen within the colon. Peritoneum: No free air is seen. There is mild ascites seen. Ventral Wall: No hernias. Abdominal Nodes: No retroperitoneal or mesenteric adenopathy by size criteria. Vessels: Aorta and inferior vena cava are normal in size. PELVIS: Pelvic Organs: Unremarkable. Bladder: Unremarkable. Pelvic Nodes: No enlarged lymph nodes. Miscellaneous: No hernias are seen. Bones: Focal L5-S1 degenerative change is seen. Milder degenerative changes are seen elsewhere. Mild AVN can be seen involving the right femoral head, as on series 4, image 25. IMPRESSION: Inflammatory changes seen surrounding the pancreas, with pseudocyst formation, consistent with pancreatitis. Pancreatic neoplasm is possible, yet considered to be less likely. There is adjacent focal wall thickening and hyperenhancement seen involving the 4th portion of the duodenum, with associated fluid distension of the stomach and the duodenum. Low-density lesions are again seen within the liver. Differential diagnosis includes cysts or hemangiomas. Abscesses are possible, yet considered to be less likely. The common bile duct is dilated at 18 mm. Resolving left lower lobe inflammatory process. Irregular left adrenal gland, with internal cyst formation. This is worse compared to the prior examination and may be related to the adjacent inflammatory change. Incidental note is made of: Simple appearing right renal cyst Apparent lobulation of the left kidney Focal L5-S1 degenerative change Right femoral head AVN. Note: No significant discrepancy from the preliminary report. Dictated by: Daren Sahu M.D. on 12/06/2020 at 7:49 Approved by: Daren Sahu M.D. on 12/06/2020 at 8:01
[2020-12-05] MEDS: METOCLOPRAMIDE 10 MG/2 ML INJ IV (23:24)
[2020-12-05 23:25] LABS: PTT Partial Thromboplastin Tim 32 SECONDS (26.4-36.2)
[2020-12-05 23:32] LABS: INR 1.1 (0.9-1.3); Prothrombin Time 12.2 SECONDS (10.1-12.7)
[2020-12-06] VITALS (34 sets, daily range): BP systolic 142–179; BP diastolic 78–104; PULSE 59–90; RESP 13–55; O2SAT 92–100
[2020-12-06] MEDS: SODIUM CHLORIDE 0.9% 1,000 ML 125 ML IV (01:36)
[2020-12-06] MEDS: HYDROMORPHONE 0.5 MG INJ IV ×5 (01:36→14:10)
[2020-12-06] MEDS: ONDANSETRON 4 MG/2 ML INJ IV ×2 (01:36→14:12)
[2020-12-06] MEDS: LIDOCAINE 2% (GLYDO) 6 ML GEL TOP (04:11)
--- NOTE | 2020-12-06 04:34 | DI.RAD.S_ITS ---
PROCEDURE: XR CHEST 1V INDICATIONS: check placement of ng tube TECHNIQUE: One view of the chest was acquired. COMPARISON: [facility], CT, CT ABDOMEN PELVIS W CON, 12/05/2020, 22:48. [facility], CR, XR CHEST 1V, 09/29/2020, 15:11. FINDINGS: Surgical changes and devices: 2 images were obtained and the tip of the NG tube is not seen, yet is believed to overlie the distal stomach, with the side hole seen along the mid stomach. Lungs and pleura: Lungs are clear. No pleural effusions or pneumothorax. Mediastinum: Mediastinal contours appear normal. Heart size is normal. Bones and chest wall: No suspicious bony lesions. Overlying soft tissues appear unremarkable. IMPRESSION: The tip of the gastric tube is believed to overlie the distal stomach. Note: No significant discrepancy from the preliminary report. Dictated by: Daren Sahu M.D. on 12/06/2020 at 7:17 Approved by: Daren Sahu M.D. on 12/06/2020 at 7:18
--- NOTE | 2020-12-06 06:19 | PC.NURSE ---
provider aware of coffee ground emesis. no new orders.
[2020-12-06] MEDS: PIPERACILLIN/TAZO 4.5 GM in SODIUM CHLORIDE 0.9% 100 ML 200 ML IV (07:45)
[2020-12-06 08:50] LABS: Add Manual Diff / Slide Review NO; Basophils Absolute Auto 100 /uL (0-100); Basophils Percent Auto 0.9 % (0-2); Eosinophils Absolute Auto 100 /uL (0-450); Eosinophils Percent Auto 1.2 % (2-4); Hematocrit 28.9 % (41-53); Hemoglobin 9.6 g/dL (13.5-17.5); Lymphocytes Absolute Auto 700 /uL (1100-4500); Lymphocytes Percent Auto 10.2 % (25-40); Mean Corpuscular HGB Conc 33.2 % (30-36); Mean Corpuscular Hemoglobin 28.4 PG (26-34); Mean Corpuscular Volume 85.8 fL (80-100); Monocytes Absolute Auto 800 /uL (0-900); Monocytes Percent Auto 10.7 % (3-14); Neutrophils Absolute Auto 5600 /uL (1500-7000); Platelet Count 236 X10^3/uL (150-400); Red Blood Cell Count 3.37 X10^6/uL (4.5-5.9); Red Cell Distribution Width 15.9 % (11.6-14.8); White Blood Cell Count 7.3 X10^3/uL (4.5-11.0)
[2020-12-06 08:59] LABS: Alanine Aminotransferase 298 IU/L (<50); Albumin 3.8 g/dL (3.5-5.0); Albumin Globulin Ratio 1.2 (1.0-2.8); Alkaline Phosphatase 869 U/L (38-126); Aspartate Aminotransferase 152 IU/L (17-59); BUN Creatinine Ratio 21.1 (6-22); Bilirubin Total 2.4 mg/dL (0.2-1.3); Blood Urea Nitrogen 12 mg/dL (9-20); Calcium 9.7 mg/dL (8.4-10.2); Carbon Dioxide 35 mmol/L (22-32); Chloride 94 mmol/L (98-107); Estimated Glomerular Filt Rate > 60.0 mL/min (>60); Globulin 3.3 g/dL (1.7-4.1); Glucose 117 mg/dL (70-100); HEMOLYSIS < 15 (0-50); Lipase 257 U/L (23-300); Potassium 3.6 mmol/L (3.4-5.1); Sodium 138 mmol/L (137-145); Total Protein 7.1 g/dL (6.3-8.2)
--- NOTE | 2020-12-06 09:05 | PC.NURSE ---
[facility] was called and they stated that they still did not have proper staffing to accommodated him at this time but they would call us back if they gained staff or had a discharge.
[2020-12-06] MEDS: DEXTROSE 5%-0.45% NS 1,000 ML 125 ML IV (09:57)
--- NOTE | 2020-12-06 10:42 | PC.NURSE ---
Pt was moved onto a more comfortable in pt bed here in the ER. Transfer to new stretcher was without incident. All lines and monitors in place and intact. Pt did well with self stand and pivot transfer
--- NOTE | 2020-12-06 13:01 | PC.NURSE ---
[facility] was called again for an update. The transfer center stated that he will 100% have a bed later tonight, they are just waiting on some discharges. they state they will call us in a few hours with a bed number
--- NOTE | 2020-12-06 14:06 | PC.NURSE ---
report called to RN at report # [phone]
--- NOTE | 2020-12-09 13:34 | ONC.MSW ---
T/C Left message re: pt needing a referral for [facility], and provided my direct contact to assist him. He's currently inpt at [facility]. Requested a return call.
== END 2020-12-06 14:25 | disposition short-term general hospital (02) ==
PROVIDERS: Emergency Medicine; Emergency Provider Emergency Medicine
DX: K80.20 Calculus of gallbladder without cholecystitis without obstruction (principal); E80.6 Other disorders of bilirubin metabolism; R74.01 Elevation of levels of liver transaminase levels; K86.3 Pseudocyst of pancreas; R11.0 Nausea; Z20.822 Contact with and (suspected) exposure to COVID-19
CPT/HCPCS: 36415; 71045; 74019; 74177; 76700; 80053; 81003; 83690; 83735; 85025; 85610; 85730; 87635; 96361; 96365; 96366; 96375; 96376; 99285; C9803; J1170; J2405; J2543; J2765; Q9967